=== PATIENT | male | born 1970 | race Two or more races ===

== ENCOUNTER 2020-12-04 20:06 | Emergency (ER) | payer BC ==
--- NOTE | 2020-12-04 20:38 | EDM.PDOC ---
ED HPI GENERAL MEDICAL PROBLEM - General Chief Complaint: Respiratory Problem Stated Complaint: COVID SYMPTOMS GETTING WORSE Time Seen by Provider: 12/04/20 20:21 Source of Information: Reports: Patient History Limitations: Reports: No Limitations - History of Present Illness INITIAL COMMENTS - FREE TEXT/NARRATIVE: Patient is a 50-year-old male who presents today for worsening Covid symptoms. Patient states that he has symptoms since last week but tested +3 days ago on Friday. States since that time has had increased tightness in his chest. The tightness made worse with ambulating. He also has some shortness of breath or nonproductive cough. The pain in his chest did not radiate anywhere. He does not take any medicines at home just vitamin D or other supplements. Denies any abdominal pain nausea vomiting or other symptoms. - Related Data Allergies Allergy/AdvReac Type Severity Reaction Status Date / Time No Known Allergies Allergy Verified 12/04/20 20:27 Past Medical History - Past Health History Medical/Surgical History: Denies Medical/Surgical History - Infectious Disease History Other Infectious Disease History: covid diagnosed 12/01/20 Social & Family History - Tobacco Use Tobacco Use Status *Q: Never Tobacco User - Recreational Drug Use Recreational Drug Use: No ED ROS GENERAL - Review of Systems Review Of Systems: See Below Constitutional: Reports: No Symptoms HEENT: Reports: No Symptoms Respiratory: Reports: Shortness of Breath Cardiovascular: Reports: Chest Pain Endocrine: Reports: No Symptoms GI/Abdominal: Reports: No Symptoms : Reports: No Symptoms Musculoskeletal: Reports: No Symptoms Skin: Reports: No Symptoms Neurological: Reports: No Symptoms Psychiatric: Reports: No Symptoms Hematologic/Lymphatic: Reports: No Symptoms Immunologic: Reports: No Symptoms ED EXAM, GENERAL - Physical Exam Exam: See Below Exam Limited By: No Limitations General Appearance: Alert, WD/WN, No Apparent Distress Head: Atraumatic, Normocephalic Respiratory/Chest: No Respiratory Distress, Lungs Clear, Normal Breath Sounds Cardiovascular: Normal Peripheral Pulses, Regular Rate, Rhythm GI/Abdominal: Normal Bowel Sounds, Soft, Non-Tender Back Exam: Normal Inspection Extremities: Normal Inspection, Normal Range of Motion Neurological: Alert, Oriented, Normal Cognition, Normal Gait Psychiatric: Normal Affect #1 Interpretation EKG Date: 12/04/20 Time: 20:54 Rhythm: Other (sinus tach) Rate (Beats/Min): 101 ST-T: Normal Course - Vital Signs Last Recorded V/S: Last Vital Signs Temp 98.4 F 12/04/20 20:27 Pulse 102 H 12/04/20 20:27 Resp 20 12/04/20 20:27 BP 125/72 12/04/20 20:27 Pulse Ox 93 L 12/04/20 20:27 - Orders/Labs/Meds Orders: Active Orders 24 hr Category Date Time Status EKG Documentation Completion [RC] STAT Care 12/04/20 20:34 Active Labs: Laboratory Tests 12/04/20 12/04/20 12/04/20 Range/Units 20:55 20:55 20:55 WBC 6.55 (4.0-11.0) K/uL RBC 5.48 (4.50-5.90) M/uL Hgb 16.6 (13.0-17.0) g/dL Hct 46.0 (38.0-50.0) % MCV 83.9 (80.0-98.0) fL MCH 30.3 (27.0-32.0) pg MCHC 36.1 (31.0-37.0) g/dL RDW Std Deviation 38.5 (28.0-62.0) fl RDW Coeff of Laney 13 (11.0-15.0) % Plt Count 175 (150-400) K/uL MPV 9.70 (7.40-12.00) fL Neut % (Auto) 74.3 (48.0-80.0) % Lymph % (Auto) 19.4 (16.0-40.0) % [place] % (Auto) 6.3 (0.0-15.0) % Eos % (Auto) 0.0 (0.0-7.0) % Baso % (Auto) 0.0 (0.0-1.5) % Neut # (Auto) 4.9 (1.4-5.7) K/uL Lymph # (Auto) 1.3 (0.6-2.4) K/uL [place] # (Auto) 0.4 (0.0-0.8) K/uL Eos # (Auto) 0.0 (0.0-0.7) K/uL Baso # (Auto) 0.0 (0.0-0.1) K/uL Nucleated RBC % 0.0 /100WBC Nucleated RBCs # 0 K/uL INR 1.11 APTT 26.2 (18.6-31.3) SEC D-Dimer, Quantitative 0.82 H (0.0-0.50) mg/L FEU Sodium 131 L (136-148) mmol/L Potassium 4.4 (3.5-5.1) mmol/L Chloride 94 L (98-107) mmol/L Carbon Dioxide 26.0 (21.0-32.0) mmol/L BUN 15 (7.0-18.0) mg/dL Creatinine 1.3 (0.8-1.3) mg/dL Est Cr Clr Drug Dosing TNP Estimated GFR (MDRD) 58.4 ml/min Glucose 115 H (74-106) mg/dL Lactic Acid (0.4-2.0) mmol/L Calcium 8.4 L (8.5-10.1) mg/dL Phosphorus 3.3 (2.6-4.7) mg/dL Magnesium 2.2 (1.8-2.4) mg/dL Total Bilirubin 0.7 (0.2-1.0) mg/dL AST 65 H (15-37) IU/L ALT 69 H (14-63) IU/L Alkaline Phosphatase 38 L (46-116) U/L Creatine Kinase 762 H (26-308) U/L Troponin I < 0.050 (0.000-0.056) ng/mL Total Protein 7.6 (6.4-8.2) g/dL Albumin 3.6 (3.4-5.0) g/dL Globulin 4.0 (2.6-4.0) g/dL Albumin/Globulin Ratio 0.9 (0.9-1.6) Lipase 609 H (73-393) U/L 12/04/20 Range/Units 20:55 WBC (4.0-11.0) K/uL RBC (4.50-5.90) M/uL Hgb (13.0-17.0) g/dL Hct (38.0-50.0) % MCV (80.0-98.0) fL MCH (27.0-32.0) pg MCHC (31.0-37.0) g/dL RDW Std Deviation (28.0-62.0) fl RDW Coeff of Laney (11.0-15.0) % Plt Count (150-400) K/uL MPV (7.40-12.00) fL Neut % (Auto) (48.0-80.0) % Lymph % (Auto) (16.0-40.0) % [place] % (Auto) (0.0-15.0) % Eos % (Auto) (0.0-7.0) % Baso % (Auto) (0.0-1.5) % Neut # (Auto) (1.4-5.7) K/uL Lymph # (Auto) (0.6-2.4) K/uL [place] # (Auto) (0.0-0.8) K/uL Eos # (Auto) (0.0-0.7) K/uL Baso # (Auto) (0.0-0.1) K/uL Nucleated RBC % /100WBC Nucleated RBCs # K/uL INR APTT (18.6-31.3) SEC D-Dimer, Quantitative (0.0-0.50) mg/L FEU Sodium (136-148) mmol/L Potassium (3.5-5.1) mmol/L Chloride (98-107) mmol/L Carbon Dioxide (21.0-32.0) mmol/L BUN (7.0-18.0) mg/dL Creatinine (0.8-1.3) mg/dL Est Cr Clr Drug Dosing Estimated GFR (MDRD) ml/min Glucose (74-106) mg/dL Lactic Acid 1.5 (0.4-2.0) mmol/L Calcium (8.5-10.1) mg/dL Phosphorus (2.6-4.7) mg/dL Magnesium (1.8-2.4) mg/dL Total Bilirubin (0.2-1.0) mg/dL AST (15-37) IU/L ALT (14-63) IU/L Alkaline Phosphatase (46-116) U/L Creatine Kinase (26-308) U/L Troponin I (0.000-0.056) ng/mL Total Protein (6.4-8.2) g/dL Albumin (3.4-5.0) g/dL Globulin (2.6-4.0) g/dL Albumin/Globulin Ratio (0.9-1.6) Lipase (73-393) U/L Meds: Medications Discontinued Medications Generic Name Dose Route Start Last Admin Trade Name Victor Hugo PRN Reason Stop Dose Admin Iopamidol 75 ml 12/04/20 22:38 12/04/20 22:54 Iopamidol 755 Mg/Ml 500 Ml Multipack Bottle IVPUSH 12/04/20 22:39 75 ml ONETIME STA Administration - Re-Assessments/Exams Free Text/Narrative Re-Assessment/Exam: 12/05/20 00:12 Patient is satting 94% while sleeping. Patient looks well. Patient CT does not show any clots. Patient to be discharged follow-up PMD. Departure - Departure Time of Disposition: 00:12 Disposition: Home, Self-Care 01 Condition: Good Clinical Impression: COVID-19 - Discharge Information *PRESCRIPTION DRUG MONITORING PROGRAM REVIEWED*: Not Applicable *COPY OF PRESCRIPTION DRUG MONITORING REPORT IN PATIENT NATE: Not Applicable Instructions: COVID-19 Frequently Asked Questions Referrals: PCP,None [Primary Care Provider] - Forms: ED Department Discharge Additional Instructions: The following information is given to patients seen in the emergency department who are being discharged to home. This information is to outline your options for follow-up care. We provide all patients seen in our emergency department with a follow-up referral. The need for follow-up, as well as the timing and circumstances, are variable depending upon the specifics of your emergency department visit. If you don't have a primary care physician on staff, we will provide you with a referral. We always advise you to contact your personal physician following an emergency department visit to inform them of the circumstance of the visit and for follow-up with them and/or the need for any referrals to a consulting specialist. The emergency department will also refer you to a specialist when appropriate. This referral assures that you have the opportunity for follow-up care with a specialist. All of these measure are taken in an effort to provide you with optimal care, which includes your follow-up. Under all circumstances we always encourage you to contact your private physician who remains a resource for coordinating your care. When calling for follow-up care, please make the office aware that this follow-up is from your recent emergency room visit. If for any reason you are refused follow-up, please contact the [facility] Emergency Department at and asked to speak to the emergency department charge nurse. Please follow up with your primary care physician. If you do not have a primary care physician, see below: [facility] [address] [place] [address] My [facility] [address] [place] [address] You were seen today for worsening Covid symptoms. Your oxygen levels in the mid 90s which is typical for people with Covid. We recommend you follow your primary care physician. Please continue to try [id number] medications. Your symptoms may become worse around a 7 or 8 which happens with Covid. If your symptoms become to worse please return to the ED otherwise continue to follow your primary care physician. Sepsis Event Note (ED) - Evaluation Sepsis Screening Result: No Definite Risk - Focused Exam Vital Signs: Vital Signs Temp Pulse Resp BP Pulse Ox 12/04/20 20:27 98.4 F 102 H 20 125/72 93 L - My Orders Last 24 Hours: My Active Orders 12/04/20 20:34 EKG Documentation Completion [RC] STAT - Assessment/Plan Last 24 Hours: My Active Orders 12/04/20 20:34 EKG Documentation Completion [RC] STAT Plan: Patient is a 50-year-old male presents today for worsening Covid symptoms. Patient has a possible Covid a few days ago. He is accompanied today complaint of worsening chest pain and shortness of breath made worse ambulation. Patient is an 87% on room air at rest. Will obtain labs x-ray EKG and CT scan and reassess patient.
--- NOTE | 2020-12-04 21:08 | CR ---
INDICATION: COVID-19 chest tightness TECHNIQUE: Chest radiograph 1 view on 2 films COMPARISON: None FINDINGS: The sensitivity and specificity of the exam are moderately limited by the patient`s body habitus. Mediastinum: The mediastinum is normal in appearance. The heart silhouette is normal in size and morphology. Lung: Patchy subpleural ground-glass infiltrates and consolidation present both lungs, consistent with COVID-19 infection. No sign of pleural effusion seen. No pneumothorax is identified. Bone and Soft tissue: Unremarkable for age. IMPRESSION: 1. Patchy subpleural ground-glass infiltrates and consolidation present both lungs, consistent with COVID-19 infection. Dictated by Amador rBaswell MD @ 12/04/2020 9:06:31 PM Dictated by: Amador Braswell MD @ 12/04/2020 21:06:39 (Electronically Signed)
[2020-12-04 21:43] LABS: BLOOD UREA NITROGEN,BUN 15 mg/dL (7.0-18.0); CHLORIDE,CL 94 mmol/L (98-107); GLUCOSE RANDOM 115 mg/dL (74-106); LIPASE 609 U/L (73-393); POTASSIUM,K 4.4 mmol/L (3.5-5.1); SODIUM,NA 131 mmol/L (136-148)
[2020-12-04] MEDS ORDERED: Iopamidol 755 MG/ML 500 ML Multipack Bottle IVPUSH STA (22:38)
--- NOTE | 2020-12-04 23:51 | CT ---
INDICATION: Chest tightness, positive D-dimer and COVID infection. TECHNIQUE: CT chest PE was acquired with 75 cc Isovue 370 intravenous contrast. COMPARISON: None. FINDINGS: Heart and vasculature: Contrast opacification of the pulmonary arterial tree is adequate. No sign of pulmonary embolism. Atherosclerosis with normal diameter of the thoracic aorta. No pericardial effusion. Lungs and pleural: No pleural effusion or pneumothorax. Extensive bilateral peripheral ground-glass opacities throughout the lungs. Lymph nodes/mediastinum: Mediastinal and left hilar calcified lymph nodes. Right hilar lymph nodes measure up to 2 centimeters. Right paratracheal lymph nodes measure up to 12 millimeters. Chest wall: No masses. Upper abdomen: Diffusely decreased density of the liver. Punctate calcifications within the spleen consistent with old granulomatous disease. Bones: Unremarkable for age. IMPRESSION: 1. No evidence of pulmonary embolus. 2. Extensive bilateral ground-glass opacities consistent with COVID-19 pneumonia. 3. Hepatic steatosis. Please note that all CT scans at this facility use dose modulation, iterative reconstruction, and/or weight-based dosing when appropriate to reduce radiation dose to as low as reasonably achievable. Dictated by Manish Francois MD @ 12/04/2020 11:51:[address] Manish Francois @ Dec 04 2020 11:51PM
== END 2020-12-05 00:20 | disposition home or self-care (01) ==
LOC: MW.ED 20:06
DX: U07.1 COVID-19 (principal); R00.0 Tachycardia, unspecified
CPT/HCPCS: 36415; 71045; 71275; 80053; 82550; 83605; 83690; 83735; 84100; 84484; 85025; 85379; 85610; 85730; 93005; 99285; Q9967

== ENCOUNTER 2020-12-05 17:59 | Inpatient (IN) | payer BC ==
--- NOTE | 2020-12-05 18:36 | EDM.PDOC ---
ED HPI GENERAL MEDICAL PROBLEM - General Chief Complaint: Respiratory Problem Stated Complaint: COVID SYMPTOMS Time Seen by Provider: 12/05/20 18:27 - History of Present Illness INITIAL COMMENTS - FREE TEXT/NARRATIVE: History of present illness: [] This patient complains of weakness and shortness of breath. He has a cough. He has had about 8 days of symptoms for COVID-19 and tested +4 days ago. He was seen here yesterday and at that time he had elevation of lipase and CPK. His oxygen saturation was adequate. He was sent home. He continued to deteriorate with weakness and presents now with an oxygen saturation in the mid 80s on room air. He does not have oxygen at home has not received monoclonal antibodies and is not received remdesivir. Review of systems: As per history of present illness and below otherwise all systems reviewed and negative. Past medical history: As per history of present illness and as reviewed below otherwise noncontributory. Surgical history: As per history of present illness and as reviewed below otherwise noncontributory. Social history: No reported history of drug or alcohol abuse. Family history: As per history of present illness and as reviewed below otherwise noncont ributory. Physical exam: Constitutional - well developed, well-nourished and in no acute distress HEENT - normocephalic, no evidence of trauma - external nose and mouth normal - no mass in neck and no JVD - mucosae moist EYES - full EOM, PERRL, no icterus - no evidence of inflammation, injection, or drainage Respiratory - no respiratory distress, equal bilateral expansion, lungs diminished breath sounds throughout. Oxygen saturation in the mid 80s. Corrected to 93 on 4 L of nasal cannula. Cardiovascular - Regular Rhythm with S1 and S2 appreciated and no murmur, gallop or rub. GI - abdomen soft without distension or organomegaly - normal bowel sounds - no guard or rebound Musculoskeletal no gross deformity of long bones or joints - no tenderness, swelling or edema Neurologic - Alert and oriented times four - CN II-XII grossly intact - motor sensory and coordination symmetrically normal Psychiatric - appropriate mood and affect with normal thought content Hematologic - No petechiae or purpura - mucosa appropriate color and sclera not pale - normal nail bed color and refill Integument -skin pale-no rash or evidence of trauma - normal turgor Diagnostics: [] Therapeutics: [] Impression: [] Plan: [] Definitive disposition and diagnosis as appropriate pending reevaluation and review of above. lower extremities bilaterally Pain Score (Numeric/FACES): 4 - Related Data Allergies Allergy/AdvReac Type Severity Reaction Status Date / Time No Known Allergies Allergy Verified 12/05/20 18:26 Home Meds: Home Meds . [No Known Home Meds] 12/05/20 [History] Past Medical History - Past Health History Medical/Surgical History: Denies Medical/Surgical History HEENT History: Reports: None Cardiovascular History: Reports: None Respiratory History: Reports: None Gastrointestinal History: Reports: None Genitourinary History: Reports: None Musculoskeletal History: Reports: None Neurological History: Reports: None Psychiatric History: Reports: None Endocrine/Metabolic History: Reports: None Hematologic History: Reports: None Immunologic History: Reports: None Oncologic (Cancer) History: Reports: None Dermatologic History: Reports: None - Infectious Disease History Infectious Disease History: Reports: Novel Coronavirus Other Infectious Disease History: covid diagnosed 12/01/20 - Past Surgical History Head Surgeries/Procedures: Reports: None Social & Family History - Family History Family Medical History: No Pertinent Family History - Tobacco Use Tobacco Use Status *Q: Never Tobacco User Second Hand Smoke Exposure: No - Caffeine Use Caffeine Use: Reports: None - Recreational Drug Use Recreational Drug Use: No ED ROS GENERAL - Review of Systems Review Of Systems: Comprehensive ROS is negative, except as noted in HPI. ED EXAM, GENERAL - Physical Exam Exam: See Below Free Text/Narrative:: My physical exam is in the HPI Course - Vital Signs Text/Narrative:: [address] Elena and patient admitted Last Recorded V/S: Last Vital Signs Temp 36.4 C 12/05/20 18:22 Pulse 106 H 12/05/20 18:22 Resp 18 12/05/20 18:22 BP 102/61 12/05/20 18:22 Pulse Ox 85 L 12/05/20 18:22 - Orders/Labs/Meds Orders: Active Orders 24 hr Category Date Time Status Admission Status [Patient Status] [ADT] Stat ADT 12/05/20 18:51 Ordered EKG Documentation Completion [RC] AM Care 12/05/20 18:38 Active Chest 1V Frontal [CR] Stat Exams 12/05/20 18:39 Stop Req CBC WITH AUTO DIFF [HEME] Stat Lab 12/05/20 18:38 Ordered COMPREHENSIVE METABOLIC PN,CMP [CHEM] Stat Lab 12/05/20 18:38 Ordered CREATINE KINASE,CK [CHEM] Stat Lab 12/05/20 18:38 Ordered LIPASE [CHEM] Stat Lab 12/05/20 18:38 Ordered TROPONIN I [CHEM] Stat Lab 12/05/20 18:38 Ordered Sodium Chloride 0.9% [Normal Saline] 1,000 ml Med 12/05/20 18:39 Active IV .Bolus Sodium Chloride 0.9% [Saline Flush] Med 12/05/20 18:38 Active 10 ml FLUSH ASDIRECTED PRN Sodium Chloride 0.9% [Saline Flush] Med 12/05/20 18:38 Active 2.5 ml FLUSH ASDIRECTED PRN Saline Lock Insert [OM.PC] Stat Oth 12/05/20 18:38 Ordered Medication Orders Sodium Chloride (Normal Saline) 1,000 mls @ 500 mls/hr IV .Bolus ONE Stop: 12/05/20 20:38 Sodium Chloride (Sodium Chloride 0.9% 10 Ml Syringe) 10 ml FLUSH ASDIRECTED PRN PRN Reason: Keep Vein Open Sodium Chloride (Sodium Chloride 0.9% 2.5 Ml Syringe) 2.5 ml FLUSH ASDIRECTED PRN PRN Reason: Keep Vein Open Meds: Medications Generic Name Dose Route Start Last Admin Trade Name Freq PRN Reason Stop Dose Admin Sodium Chloride 1,000 mls @ 500 mls/hr 12/05/20 18:39 Normal Saline IV 12/05/20 20:38 .Bolus ONE Sodium Chloride 10 ml 12/05/20 18:38 Sodium Chloride 0.9% 10 Ml Syringe FLUSH ASDIRECTED PRN Keep Vein Open Sodium Chloride 2.5 ml 12/05/20 18:38 Sodium Chloride 0.9% 2.5 Ml Syringe FLUSH ASDIRECTED PRN Keep Vein Open Departure - Departure Time of Disposition: 18:53 Disposition: Admitted As Inpatient 66 Condition: Fair Clinical Impression: Pneumonia due to COVID-19 virus, Dehydration - Discharge Information Referrals: PCP,None [Primary Care Provider] - Forms: ED Department Discharge Sepsis Event Note (ED) - Evaluation Sepsis Screening Result: No Definite Risk - Focused Exam Vital Signs: Vital Signs Temp Pulse Resp BP Pulse Ox 12/05/20 18:22 36.4 C 106 H 18 102/61 85 L - My Orders Last 24 Hours: My Active Orders 12/05/20 18:38 EKG Documentation Completion [RC] AM CBC WITH AUTO DIFF [HEME] Stat COMPREHENSIVE METABOLIC PN,CMP [CHEM] Stat CREATINE KINASE,CK [CHEM] Stat LIPASE [CHEM] Stat TROPONIN I [CHEM] Stat Sodium Chloride 0.9% [Saline Flush] 10 ml FLUSH ASDIRECTED PRN Sodium Chloride 0.9% [Saline Flush] 2.5 ml FLUSH ASDIRECTED PRN Saline Lock Insert [OM.PC] Stat 12/05/20 18:39 Chest 1V Frontal [CR] Stat Sodium Chloride 0.9% [Normal Saline] 1,000 ml IV .Bolus 12/05/20 18:51 Admission Status [Patient Status] [ADT] Stat - Assessment/Plan Last 24 Hours: My Active Orders 12/05/20 18:38 EKG Documentation Completion [RC] AM CBC WITH AUTO DIFF [HEME] Stat COMPREHENSIVE METABOLIC PN,CMP [CHEM] Stat CREATINE KINASE,CK [CHEM] Stat LIPASE [CHEM] Stat TROPONIN I [CHEM] Stat Sodium Chloride 0.9% [Saline Flush] 10 ml FLUSH ASDIRECTED PRN Sodium Chloride 0.9% [Saline Flush] 2.5 ml FLUSH ASDIRECTED PRN Saline Lock Insert [OM.PC] Stat 12/05/20 18:39 Chest 1V Frontal [CR] Stat Sodium Chloride 0.9% [Normal Saline] 1,000 ml IV .Bolus 12/05/20 18:51 Admission Status [Patient Status] [ADT] Stat
[2020-12-05] MEDS ORDERED: Sodium Chloride 0.9% 10 ML Syringe FLUSH PRN (18:38)
[2020-12-05] MEDS ORDERED: Sodium Chloride 0.9% 2.5 ML Syringe FLUSH PRN (18:38)
[2020-12-05] MEDS ORDERED: Sodium Chloride 0.9% 1,000 ML IV ONE (18:39)
[2020-12-05 19:49] LABS: BLOOD UREA NITROGEN,BUN 16 mg/dL (7.0-18.0); CARBON DIOXIDE,CO2 25.2 mmol/L (21.0-32.0); CHLORIDE,CL 94 mmol/L (98-107); GLUCOSE RANDOM 112 mg/dL (74-106); LIPASE 512 U/L (73-393); POTASSIUM,K 4.2 mmol/L (3.5-5.1); SODIUM,NA 129 mmol/L (136-148)
[2020-12-05] MEDS ORDERED: REMDESIVIR 200 MG in Sodium Chloride 0.9% 250 ML IV ONE (23:35)
[2020-12-05] MEDS ORDERED: Acetaminophen 325 MG Tab PO PRN (23:36)
--- NOTE | 2020-12-05 23:51 | PCM.HP.2 ---
H&P History of Present Illness - General Date of Service: 12/05/20 Admit Problem/Dx: Admission Diagnosis/Problem Admission Diagnosis/Problem Pneumonia - History of Present Illness Initial Comments - Free Text/Narative: 50 yo male who presents to the ED with complaint of shortness of breath, cough, chills, headache and diarrhea. Patient denies any abdominal pain. He was diagnosed on Friday and first started to have symptoms 8 days ago. He denies any abdominal pain. He was seen in the ED yesterday and had a CT scan of his chest which was negative for PE but reported covid pneumonia. lower extremities bilaterally Pain Score (Numeric/FACES): 4 - Related Data Allergies/Adverse Reactions: Allergies Allergy/AdvReac Type Severity Reaction Status Date / Time No Known Allergies Allergy Verified 12/06/20 02:42 Home Medications: Home Meds Lisinopril/Hydrochlorothiazide [Lisinopril-Hctz 20-12.5 mg Tab] 1 tab PO DAILY 12/06/20 [History] dilTIAZem HCL [Diltiazem 24Hr ER (Cd)] 360 mg PO DAILY 12/06/20 [History] Past Medical History - Past Health History Medical/Surgical History: Denies Medical/Surgical History HEENT History: Reports: None Cardiovascular History: Reports: None Respiratory History: Reports: None Gastrointestinal History: Reports: None Genitourinary History: Reports: None Musculoskeletal History: Reports: None Neurological History: Reports: None Psychiatric History: Reports: None Endocrine/Metabolic History: Reports: None Hematologic History: Reports: None Immunologic History: Reports: None Oncologic (Cancer) History: Reports: None Dermatologic History: Reports: None - Infectious Disease History Infectious Disease History: Reports: Chicken Pox, Novel Coronavirus Other Infectious Disease History: covid diagnosed 12/01/20 - Past Surgical History Head Surgeries/Procedures: Reports: None Social & Family History - Family History Family Medical History: No Pertinent Family History - Tobacco Use Tobacco Use Status *Q: Never Tobacco User Second Hand Smoke Exposure: No - Caffeine Use Caffeine Use: Reports: Coffee, Soda Caffeine Use Comment: 8 daily - Alcohol Use Number of Drinks Per Day: 1 - Recreational Drug Use Recreational Drug Use: No H&P Review of Systems - Review of Systems: Review Of Systems: Comprehensive ROS is negative, except as noted in HPI. Exam - Exam Exam: See Below - Vital Signs Vital Signs: Last Vital Signs Temp 36.1 C 12/05/20 23:15 Pulse 88 12/05/20 23:15 Resp 20 12/05/20 23:15 BP 139/79 12/05/20 23:15 Pulse Ox 93 L 12/05/20 23:15 Weight: 111.629 kg - Exam General: Alert, Oriented HEENT: Mucosa Moist & [place] Neck: Supple Lungs: Clear to Auscultation, Normal Respiratory Effort Cardiovascular: Regular Rate, Regular Rhythm GI/Abdominal Exam: Normal Bowel Sounds, Soft, Non-Tender Extremities: Non-Tender, No Pedal Edema Skin: Warm, Dry, Intact Neurological: No: Focal Deficit - Patient Data Lab Results Last 24 hrs: Laboratory Results - last 24 hr 12/05/20 12/05/20 Range/Units 19:00 19:00 WBC 8.78 (4.0-11.0) K/uL RBC 5.29 (4.50-5.90) M/uL Hgb 15.7 (13.0-17.0) g/dL Hct 43.9 (38.0-50.0) % MCV 83.0 (80.0-98.0) fL MCH 29.7 (27.0-32.0) pg MCHC 35.8 (31.0-37.0) g/dL RDW Std Deviation 38.0 (28.0-62.0) fl RDW Coeff of [place] 13 (11.0-15.0) % Plt Count 237 (150-400) K/uL MPV 9.80 (7.40-12.00) fL Neut % (Auto) 79.5 (48.0-80.0) % Lymph % (Auto) 15.0 L (16.0-40.0) % [place] % (Auto) 5.4 (0.0-15.0) % Eos % (Auto) 0.0 (0.0-7.0) % Baso % (Auto) 0.1 (0.0-1.5) % Neut # (Auto) 7.0 H (1.4-5.7) K/uL Lymph # (Auto) 1.3 (0.6-2.4) K/uL [place] # (Auto) 0.5 (0.0-0.8) K/uL Eos # (Auto) 0.0 (0.0-0.7) K/uL Baso # (Auto) 0.0 (0.0-0.1) K/uL Nucleated RBC % 0.0 /100WBC Nucleated RBCs # 0 K/uL Sodium 129 L (136-148) mmol/L Potassium 4.2 (3.5-5.1) mmol/L Chloride 94 L (98-107) mmol/L Carbon Dioxide 25.2 (21.0-32.0) mmol/L BUN 16 (7.0-18.0) mg/dL Creatinine 1.3 (0.8-1.3) mg/dL Est Cr Clr Drug Dosing 72.40 mL/min Estimated GFR (MDRD) 58.4 ml/min Glucose 112 H (74-106) mg/dL Calcium 8.3 L (8.5-10.1) mg/dL Total Bilirubin 0.8 (0.2-1.0) mg/dL AST 61 H (15-37) IU/L ALT 66 H (14-63) IU/L Alkaline Phosphatase 43 L (46-116) U/L Creatine Kinase 667 H (26-308) U/L Troponin I < 0.050 (0.000-0.056) ng/mL Total Protein 7.1 (6.4-8.2) g/dL Albumin 3.2 L (3.4-5.0) g/dL Globulin 3.9 (2.6-4.0) g/dL Albumin/Globulin Ratio 0.8 L (0.9-1.6) Lipase 512 H (73-393) U/L Result Diagrams: 12/06/20 05:29 12/06/20 05:29 Sepsis Event Note - Evaluation Sepsis Screening Result: No Definite Risk - Focused Exam Vital Signs: Vital Signs Temp Pulse Resp BP BP Pulse Ox 12/05/20 23:15 36.1 C 88 20 139/79 93 L 12/05/20 18:22 36.4 C 106 H 18 102/61 85 L Problem List Initiated/Reviewed/Updated: Yes Orders Last 24hrs: Active Orders 24 hr Category Date Time Status Admission Status [Patient Status] [ADT] Stat ADT 12/05/20 18:51 Active EKG Documentation Completion [RC] AM Care 12/05/20 18:38 Active Oxygen Therapy [RC] PRN Care 12/05/20 23:37 Ordered Telemetry Monitoring [Cardiac Monitoring] [RC] . Care 12/05/20 22:40 Active DIRECTED Up ad Renetta [RC] ASDIRECTED Care 12/05/20 23:36 Ordered VTE/DVT Education [RC] PER UNIT ROUTINE Care 12/05/20 23:37 Ordered Vital Signs [RC] Q4H Care 12/05/20 23:37 Ordered Regular Diet [DIET] Diet 12/05/20 Breakfast Ordered CXR [Chest 1V Frontal] [CR] AM Exams 12/06/20 05:11 Ordered CBC WITH AUTO DIFF [HEME] AM Lab 12/06/20 05:11 Ordered COMPREHENSIVE METABOLIC PN,CMP [CHEM] AM Lab 12/06/20 05:11 Ordered COMPREHENSIVE METABOLIC PN,CMP [CHEM] AM Lab 12/07/20 05:11 Ordered COMPREHENSIVE METABOLIC PN,CMP [CHEM] AM Lab 12/08/20 05:11 Ordered COMPREHENSIVE METABOLIC PN,CMP [CHEM] AM Lab 12/09/20 05:11 Ordered COMPREHENSIVE METABOLIC PN,CMP [CHEM] AM Lab 12/10/20 05:11 Ordered CPK [CREATINE KINASE,CK] [CHEM] AM Lab 12/06/20 05:11 Ordered LIPASE [CHEM] AM Lab 12/06/20 05:11 Ordered MAGNESIUM [CHEM] AM Lab 12/06/20 05:11 Ordered Acetaminophen [TylenoL] Med 12/05/20 23:36 Ordered 650 mg PO Q4H PRN Enoxaparin [Lovenox] Med 12/05/20 23:45 Ordered 40 mg SUBCUT Q24H Remdesivir 100 mg Med 12/06/20 23:45 Ordered Sodium Chloride 0.9% [Normal Saline] 100 ml IV Q24H Sodium Chloride 0.9% [Saline Flush] Med 12/05/20 18:38 Active 10 ml FLUSH ASDIRECTED PRN Sodium Chloride 0.9% [Saline Flush] Med 12/05/20 18:38 Active 2.5 ml FLUSH ASDIRECTED PRN dexAMETHasone Med 12/05/20 23:45 Ordered 6 mg PO Q24H Saline Lock Insert [OM.PC] Stat Oth 12/05/20 18:38 Ordered Resuscitation Status Routine Resus Stat 12/05/20 23:36 Ordered Medication Orders Acetaminophen (Acetaminophen 325 Mg Tab) 650 mg PO Q4H PRN PRN Reason: Pain (Mild 1-3)/fever Dexamethasone (Dexamethasone 4 Mg Tab) 6 mg PO Q24H RADHA Enoxaparin Sodium (Enoxaparin 40 Mg/0.4 Ml Syringe) 40 mg SUBCUT Q24H RADHA Remdesivir 100 mg/ Sodium (Chloride) 100 mls @ 100 mls/hr IV Q24H RADHA Stop: 12/09/20 21:59 Sodium Chloride (Sodium Chloride 0.9% 10 Ml Syringe) 10 ml FLUSH ASDIRECTED PRN PRN Reason: Keep Vein Open Last Admin: 12/05/20 19:08 Dose: 10 ml Documented by: BOLA Sodium Chloride (Sodium Chloride 0.9% 2.5 Ml Syringe) 2.5 ml FLUSH ASDIRECTED PRN PRN Reason: Keep Vein Open Assessment/Plan Comment:: 50 yo male admitted with acute hypoxic respiratory failure from COVID pneumonia. We will treat with Remdesivir and dexamethasone. Will wean supplemental oxygen as tolerated. PAtient received IV fluids in ED. Will continue to monitor need for fluid replacement.
[2020-12-06] MEDS: Enoxaparin 40 MG/0.4 ML Syringe SUBCUT SCH ×2 (00:20→23:02)
[2020-12-06] MEDS: Dexamethasone 4 MG Tab PO SCH ×2 (00:20→23:00)
[2020-12-06 06:12] LABS: BLOOD UREA NITROGEN,BUN 16 mg/dL (7.0-18.0); CARBON DIOXIDE,CO2 24.9 mmol/L (21.0-32.0); CHLORIDE,CL 98 mmol/L (98-107); GLUCOSE RANDOM 136 mg/dL (74-106); LIPASE 497 U/L (73-393); POTASSIUM,K 4.2 mmol/L (3.5-5.1); SODIUM,NA 133 mmol/L (136-148)
--- NOTE | 2020-12-06 07:19 | CR ---
Indication: COVID-19 pneumonitis Technique: Chest 1 view Comparison: 12/04/2020 Findings/Impression: Cardiovascular and mediastinum: Heart size and vasculature are normal in caliber and appearance. Lungs and pleural space: Ill-defined bilateral infiltrates consistent with COVID pneumonitis may have slightly improved. No effusions and no pneumothorax. Bones and soft tissues: No acute findings. Dictated by Ajit Roach MD @ 12/06/2020 7:19:[address] Ajit Roach @ Dec 06 2020 7:19AM
--- NOTE | 2020-12-06 11:19 | PCM.PN ---
- General Info Date of Service: 12/06/20 Admission Dx/Problem (Free Text): Admission Diagnosis/Problem Admission Diagnosis/Problem Pneumonia Subjective Update: 50-year-old male admitted for Covid pneumonia currently on 4 L nasal cannula. He states he feels better this morning with his breathing and cough. Denies chest pain or tightness. Denies abdominal pain, nausea or vomiting. He does not appear to be in respiratory distress and is resting comfortably. He denies muscle pain or hematuria. According to his med rec he was on diltiazem and lisinopril hydrochlorothiazide. Patient states that he does have a history of hypertension but has not refilled his medications in a while since his blood pressure has been" normal" - Review of Systems General: Denies: Fever, Chills HEENT: Denies: Eye Pain, Sore Throat Pulmonary: Denies: Shortness of Breath, Sputum, Hemoptysis, Wheezing Cardiovascular: Reports: No Symptoms Gastrointestinal: Reports: Decreased Appetite. Denies: Abdominal Pain, Diarrhea, Nausea, Vomiting Genitourinary: Reports: No Symptoms Musculoskeletal: Reports: No Symptoms Skin: Reports: No Symptoms Neurological: Reports: No Symptoms - Patient Data Vitals - Most Recent: Last Vital Signs Temp 95.7 F L 12/06/20 08:00 Pulse 79 12/06/20 08:00 Resp 18 12/06/20 08:00 BP 120/74 12/06/20 08:00 Pulse Ox 91 L 12/06/20 08:00 Weight - Most Recent: 246 lb 1.6 oz I&O - Last 24 Hours: Intake & Output 12/05/20 12/06/20 12/06/20 22:59 06:59 14:59 Intake Total 550 Output Total 400 Balance 150 Lab Results Last 24 Hours: Laboratory Results - last 24 hr 12/05/20 12/05/20 12/06/20 Range/Units 19:00 19:00 05:29 WBC 8.78 8.36 (4.0-11.0) K/uL RBC 5.29 5.19 (4.50-5.90) M/uL Hgb 15.7 15.5 (13.0-17.0) g/dL Hct 43.9 43.6 (38.0-50.0) % MCV 83.0 84.0 (80.0-98.0) fL MCH 29.7 29.9 (27.0-32.0) pg MCHC 35.8 35.6 (31.0-37.0) g/dL RDW Std Deviation 38.0 38.9 (28.0-62.0) fl RDW Coeff of [place] 13 13 (11.0-15.0) % Plt Count 237 230 (150-400) K/uL MPV 9.80 9.60 (7.40-12.00) fL Neut % (Auto) 79.5 85.3 H (48.0-80.0) % Lymph % (Auto) 15.0 L 9.9 L (16.0-40.0) % [place] % (Auto) 5.4 4.7 (0.0-15.0) % Eos % (Auto) 0.0 0.0 (0.0-7.0) % Baso % (Auto) 0.1 0.1 (0.0-1.5) % Neut # (Auto) 7.0 H 7.1 H (1.4-5.7) K/uL Lymph # (Auto) 1.3 0.8 (0.6-2.4) K/uL [place] # (Auto) 0.5 0.4 (0.0-0.8) K/uL Eos # (Auto) 0.0 0.0 (0.0-0.7) K/uL Baso # (Auto) 0.0 0.0 (0.0-0.1) K/uL Nucleated RBC % 0.0 0.0 /100WBC Nucleated RBCs # 0 0 K/uL Sodium 129 L (136-148) mmol/L Potassium 4.2 (3.5-5.1) mmol/L Chloride 94 L (98-107) mmol/L Carbon Dioxide 25.2 (21.0-32.0) mmol/L BUN 16 (7.0-18.0) mg/dL Creatinine 1.3 (0.8-1.3) mg/dL Est Cr Clr Drug Dosing 72.40 mL/min Estimated GFR (MDRD) 58.4 ml/min Glucose 112 H (74-106) mg/dL Calcium 8.3 L (8.5-10.1) mg/dL Magnesium (1.8-2.4) mg/dL Total Bilirubin 0.8 (0.2-1.0) mg/dL AST 61 H (15-37) IU/L ALT 66 H (14-63) IU/L Alkaline Phosphatase 43 L (46-116) U/L Creatine Kinase 667 H (26-308) U/L Troponin I < 0.050 (0.000-0.056) ng/mL Total Protein 7.1 (6.4-8.2) g/dL Albumin 3.2 L (3.4-5.0) g/dL Globulin 3.9 (2.6-4.0) g/dL Albumin/Globulin Ratio 0.8 L (0.9-1.6) Lipase 512 H (73-393) U/L 12/06/20 Range/Units 05:29 WBC (4.0-11.0) K/uL RBC (4.50-5.90) M/uL Hgb (13.0-17.0) g/dL Hct (38.0-50.0) % MCV (80.0-98.0) fL MCH (27.0-32.0) pg MCHC (31.0-37.0) g/dL RDW Std Deviation (28.0-62.0) fl RDW Coeff of [place] (11.0-15.0) % Plt Count (150-400) K/uL MPV (7.40-12.00) fL Neut % (Auto) (48.0-80.0) % Lymph % (Auto) (16.0-40.0) % [place] % (Auto) (0.0-15.0) % Eos % (Auto) (0.0-7.0) % Baso % (Auto) (0.0-1.5) % Neut # (Auto) (1.4-5.7) K/uL Lymph # (Auto) (0.6-2.4) K/uL [place] # (Auto) (0.0-0.8) K/uL Eos # (Auto) (0.0-0.7) K/uL Baso # (Auto) (0.0-0.1) K/uL Nucleated RBC % /100WBC Nucleated RBCs # K/uL Sodium 133 L (136-148) mmol/L Potassium 4.2 (3.5-5.1) mmol/L Chloride 98 (98-107) mmol/L Carbon Dioxide 24.9 (21.0-32.0) mmol/L BUN 16 (7.0-18.0) mg/dL Creatinine 1.0 (0.8-1.3) mg/dL Est Cr Clr Drug Dosing 94.13 mL/min Estimated GFR (MDRD) > 60.0 ml/min Glucose 136 H (74-106) mg/dL Calcium 8.1 L (8.5-10.1) mg/dL Magnesium 2.5 H (1.8-2.4) mg/dL Total Bilirubin 0.6 (0.2-1.0) mg/dL AST 56 H (15-37) IU/L ALT 54 (14-63) IU/L Alkaline Phosphatase 41 L (46-116) U/L Creatine Kinase 485 H (26-308) U/L Troponin I (0.000-0.056) ng/mL Total Protein 6.7 (6.4-8.2) g/dL Albumin 2.9 L (3.4-5.0) g/dL Globulin 3.8 (2.6-4.0) g/dL Albumin/Globulin Ratio 0.8 L (0.9-1.6) Lipase 497 H (73-393) U/L Med Orders - Current: Current Medications Acetaminophen (Acetaminophen 325 Mg Tab) 650 mg PO Q4H PRN PRN Reason: Pain (Mild 1-3)/fever Dexamethasone (Dexamethasone 4 Mg Tab) 6 mg PO Q24H [facility] Last Admin: 12/06/20 00:20 Dose: 6 mg Documented by: Enoxaparin Sodium (Enoxaparin 40 Mg/0.4 Ml Syringe) 40 mg SUBCUT Q24H [facility] Last Admin: 12/06/20 00:20 Dose: 40 mg Documented by: Remdesivir 100 mg/ Sodium (Chloride) 100 mls @ 100 mls/hr IV Q24H [facility] Stop: 12/09/20 21:59 Sodium Chloride (Sodium Chloride 0.9% 10 Ml Syringe) 10 ml FLUSH ASDIRECTED PRN PRN Reason: Keep Vein Open Last Admin: 12/05/20 19:08 Dose: 10 ml Documented by: Sodium Chloride (Sodium Chloride 0.9% 2.5 Ml Syringe) 2.5 ml FLUSH ASDIRECTED PRN PRN Reason: Keep Vein Open Discontinued Medications Sodium Chloride (Normal Saline) 1,000 mls @ 500 mls/hr IV .Bolus ONE Stop: 12/05/20 20:38 Last Admin: 12/05/20 19:08 Dose: 500 mls/hr Documented by: Remdesivir 200 mg/ Sodium (Chloride) 250 mls @ 250 mls/hr IV ONETIME ONE Stop: 12/05/20 23:36 Last Admin: 12/06/20 00:20 Dose: 250 mls/hr Documented by: - Exam Quality Assessment: Supplemental Oxygen General: Alert, Oriented, Cooperative Neck: Supple Lungs: Decreased Breath Sounds Cardiovascular: Regular Rate, Regular Rhythm GI/Abdominal Exam: Soft, Non-Tender Extremities: No Pedal Edema. No: Gonzalo's Sign, Leg Pain Skin: Warm, Dry - Patient Data Lab Results Last 24 hrs: Laboratory Results - last 24 hr 12/05/20 12/05/20 12/06/20 Range/Units 19:00 19:00 05:29 WBC 8.78 8.36 (4.0-11.0) K/uL RBC 5.29 5.19 (4.50-5.90) M/uL Hgb 15.7 15.5 (13.0-17.0) g/dL Hct 43.9 43.6 (38.0-50.0) % MCV 83.0 84.0 (80.0-98.0) fL MCH 29.7 29.9 (27.0-32.0) pg MCHC 35.8 35.6 (31.0-37.0) g/dL RDW Std Deviation 38.0 38.9 (28.0-62.0) fl RDW Coeff of [place] 13 13 (11.0-15.0) % Plt Count 237 230 (150-400) K/uL MPV 9.80 9.60 (7.40-12.00) fL Neut % (Auto) 79.5 85.3 H (48.0-80.0) % Lymph % (Auto) 15.0 L 9.9 L (16.0-40.0) % [place] % (Auto) 5.4 4.7 (0.0-15.0) % Eos % (Auto) 0.0 0.0 (0.0-7.0) % Baso % (Auto) 0.1 0.1 (0.0-1.5) % Neut # (Auto) 7.0 H 7.1 H (1.4-5.7) K/uL Lymph # (Auto) 1.3 0.8 (0.6-2.4) K/uL [place] # (Auto) 0.5 0.4 (0.0-0.8) K/uL Eos # (Auto) 0.0 0.0 (0.0-0.7) K/uL Baso # (Auto) 0.0 0.0 (0.0-0.1) K/uL Nucleated RBC % 0.0 0.0 /100WBC Nucleated RBCs # 0 0 K/uL Sodium 129 L (136-148) mmol/L Potassium 4.2 (3.5-5.1) mmol/L Chloride 94 L (98-107) mmol/L Carbon Dioxide 25.2 (21.0-32.0) mmol/L BUN 16 (7.0-18.0) mg/dL Creatinine 1.3 (0.8-1.3) mg/dL Est Cr Clr Drug Dosing 72.40 mL/min Estimated GFR (MDRD) 58.4 ml/min Glucose 112 H (74-106) mg/dL Calcium 8.3 L (8.5-10.1) mg/dL Magnesium (1.8-2.4) mg/dL Total Bilirubin 0.8 (0.2-1.0) mg/dL AST 61 H (15-37) IU/L ALT 66 H (14-63) IU/L Alkaline Phosphatase 43 L (46-116) U/L Creatine Kinase 667 H (26-308) U/L Troponin I < 0.050 (0.000-0.056) ng/mL Total Protein 7.1 (6.4-8.2) g/dL Albumin 3.2 L (3.4-5.0) g/dL Globulin 3.9 (2.6-4.0) g/dL Albumin/Globulin Ratio 0.8 L (0.9-1.6) Lipase 512 H (73-393) U/L 12/06/20 Range/Units 05:29 WBC (4.0-11.0) K/uL RBC (4.50-5.90) M/uL Hgb (13.0-17.0) g/dL Hct (38.0-50.0) % MCV (80.0-98.0) fL MCH (27.0-32.0) pg MCHC (31.0-37.0) g/dL RDW Std Deviation (28.0-62.0) fl RDW Coeff of [place] (11.0-15.0) % Plt Count (150-400) K/uL MPV (7.40-12.00) fL Neut % (Auto) (48.0-80.0) % Lymph % (Auto) (16.0-40.0) % [place] % (Auto) (0.0-15.0) % Eos % (Auto) (0.0-7.0) % Baso % (Auto) (0.0-1.5) % Neut # (Auto) (1.4-5.7) K/uL Lymph # (Auto) (0.6-2.4) K/uL [place] # (Auto) (0.0-0.8) K/uL Eos # (Auto) (0.0-0.7) K/uL Baso # (Auto) (0.0-0.1) K/uL Nucleated RBC % /100WBC Nucleated RBCs # K/uL Sodium 133 L (136-148) mmol/L Potassium 4.2 (3.5-5.1) mmol/L Chloride 98 (98-107) mmol/L Carbon Dioxide 24.9 (21.0-32.0) mmol/L BUN 16 (7.0-18.0) mg/dL Creatinine 1.0 (0.8-1.3) mg/dL Est Cr Clr Drug Dosing 94.13 mL/min Estimated GFR (MDRD) > 60.0 ml/min Glucose 136 H (74-106) mg/dL Calcium 8.1 L (8.5-10.1) mg/dL Magnesium 2.5 H (1.8-2.4) mg/dL Total Bilirubin 0.6 (0.2-1.0) mg/dL AST 56 H (15-37) IU/L ALT 54 (14-63) IU/L Alkaline Phosphatase 41 L (46-116) U/L Creatine Kinase 485 H (26-308) U/L Troponin I (0.000-0.056) ng/mL Total Protein 6.7 (6.4-8.2) g/dL Albumin 2.9 L (3.4-5.0) g/dL Globulin 3.8 (2.6-4.0) g/dL Albumin/Globulin Ratio 0.8 L (0.9-1.6) Lipase 497 H (73-393) U/L Result Diagrams: 12/06/20 05:29 12/06/20 05:29 Sepsis Event Note - Evaluation Sepsis Screening Result: No Definite Risk - Focused Exam Vital Signs: Vital Signs Temp Pulse Resp BP Pulse Ox 12/06/20 08:00 95.7 F L 79 18 120/74 91 L 12/06/20 03:41 96.6 F L 84 20 110/71 94 L 12/05/20 23:15 97.0 F 88 20 139/79 93 L - Problem List Review Problem List Initiated/Reviewed/Updated: Yes - Plan Plan:: 50-year-old male admitted for Covid pneumonia, on day 2 of remdesivir and dexamethasone. Patient is currently on 4 L nasal cannula saturating at 94%. He is not in respiratory distress. He denies abdominal pain or muscle pain. Continue patient on the Covid regimen. Incentive spirometry. Wean oxygen as tolerated.
[2020-12-06] MEDS: REMDESIVIR 100 MG in Sodium Chloride 0.9% 100 ML IV SCH (20:07)
[2020-12-07 06:25] LABS: BLOOD UREA NITROGEN,BUN 17 mg/dL (7.0-18.0); CARBON DIOXIDE,CO2 26.9 mmol/L (21.0-32.0); CHLORIDE,CL 100 mmol/L (98-107); GLUCOSE RANDOM 144 mg/dL (74-106); SODIUM,NA 137 mmol/L (136-148)
[2020-12-07] MEDS ORDERED: Albuterol/Ipratropium 3.0-0.5 MG/3 ML Neb Soln NEB PRN (08:11)
[2020-12-07 08:15] LABS: LIPASE 433 U/L (73-393)
[2020-12-07] MEDS ORDERED: Albuterol/Ipratropium 4 GM Inhalation Spray INH SCH (08:15)
[2020-12-07] MEDS: Albuterol/Ipratropium 4 GM Inhalation Spray INH SCH ×3 (10:29→21:34)
--- NOTE | 2020-12-07 11:58 | PCM.PN ---
- General Info Date of Service: 12/07/20 Admission Dx/Problem (Free Text): Admission Diagnosis/Problem Admission Diagnosis/Problem Pneumonia Subjective Update: 50-year-old male admitted for Covid pneumonia. He states he feels better this morning with his breathing and cough but states that he gets very short of breath when he has to get up and go to the bathroom. Yesterday his oxygen was increased to 5 L nasal cannula from 4 L. Overnight he remained on 5 L. This morning he was saturating in the high 80s and RT advised patient be placed on heated high flow. Currently he is on heated high flow and tolerating well, saturating at 94%. Denies chest pain or tightness. Denies abdominal pain, nausea or vomiting. He does not appear to be in respiratory distress and is resting comfortably. He denies muscle pain or hematuria. - Review of Systems General: Reports: Weakness, Fatigue. Denies: Fever, Chills HEENT: Reports: No Symptoms Pulmonary: Reports: Shortness of Breath. Denies: Pleuritic Chest Pain Cardiovascular: Reports: No Symptoms Gastrointestinal: Reports: No Symptoms Genitourinary: Reports: No Symptoms Musculoskeletal: Reports: No Symptoms Skin: Reports: No Symptoms Neurological: Reports: No Symptoms - Patient Data Vitals - Most Recent: Last Vital Signs Temp 96.3 F L 12/07/20 11:15 Pulse 82 12/07/20 11:15 Resp 22 H 12/07/20 11:15 BP 116/78 12/07/20 11:15 Pulse Ox 91 L 12/07/20 11:15 Weight - Most Recent: 246 lb 1.6 oz I&O - Last 24 Hours: Intake & Output 12/06/20 12/07/20 12/07/20 22:59 06:59 14:59 Intake Total 600 600 Balance 600 600 Lab Results Last 24 Hours: Laboratory Results - last 24 hr 12/07/20 12/07/20 12/07/20 Range/Units 05:25 05:25 05:25 WBC 9.90 (4.0-11.0) K/uL RBC 5.46 (4.50-5.90) M/uL Hgb 16.0 (13.0-17.0) g/dL Hct 45.9 (38.0-50.0) % MCV 84.1 (80.0-98.0) fL MCH 29.3 (27.0-32.0) pg MCHC 34.9 (31.0-37.0) g/dL RDW Std Deviation 39.3 (28.0-62.0) fl RDW Coeff of [place] 13 (11.0-15.0) % Plt Count 321 (150-400) K/uL MPV 10.20 (7.40-12.00) fL Neut % (Auto) 84.1 H (48.0-80.0) % Lymph % (Auto) 10.9 L (16.0-40.0) % [place] % (Auto) 4.9 (0.0-15.0) % Eos % (Auto) 0.0 (0.0-7.0) % Baso % (Auto) 0.1 (0.0-1.5) % Neut # (Auto) 8.3 H (1.4-5.7) K/uL Lymph # (Auto) 1.1 (0.6-2.4) K/uL [place] # (Auto) 0.5 (0.0-0.8) K/uL Eos # (Auto) 0.0 (0.0-0.7) K/uL Baso # (Auto) 0.0 (0.0-0.1) K/uL Nucleated RBC % 0.0 /100WBC Nucleated RBCs # 0 K/uL Sodium 137 (136-148) mmol/L Potassium 4.0 (3.5-5.1) mmol/L Chloride 100 (98-107) mmol/L Carbon Dioxide 26.9 (21.0-32.0) mmol/L BUN 17 (7.0-18.0) mg/dL Creatinine 1.0 (0.8-1.3) mg/dL Est Cr Clr Drug Dosing 94.13 mL/min Estimated GFR (MDRD) > 60.0 ml/min Glucose 144 H (74-106) mg/dL Calcium 8.6 (8.5-10.1) mg/dL Total Bilirubin 0.6 (0.2-1.0) mg/dL AST 47 H (15-37) IU/L ALT 66 H (14-63) IU/L Alkaline Phosphatase 46 (46-116) U/L Creatine Kinase 181 (26-308) U/L Total Protein 6.7 (6.4-8.2) g/dL Albumin 2.8 L (3.4-5.0) g/dL Globulin 3.9 (2.6-4.0) g/dL Albumin/Globulin Ratio 0.7 L (0.9-1.6) Lipase 433 H (73-393) U/L Med Orders - Current: Current Medications Acetaminophen (Acetaminophen 325 Mg Tab) 650 mg PO Q4H PRN PRN Reason: Pain (Mild 1-3)/fever Albuterol/Ipratropium (Albuterol/Ipratropium 4 Gm Inhalation [place]) 0 gm INH Q6H [facility] Last Admin: 12/07/20 10:29 Dose: 1 inhalation Documented by: Dexamethasone (Dexamethasone 4 Mg Tab) 6 mg PO Q24H [facility] Last Admin: 12/06/20 23:00 Dose: 6 mg Documented by: Enoxaparin Sodium (Enoxaparin 40 Mg/0.4 Ml Syringe) 40 mg SUBCUT Q24H [facility] Last Admin: 12/06/20 23:02 Dose: 40 mg Documented by: Remdesivir 100 mg/ Sodium (Chloride) 100 mls @ 100 mls/hr IV Q24H [facility] Stop: 12/09/20 21:59 Last Admin: 12/06/20 20:07 Dose: 100 mls/hr Documented by: Sodium Chloride (Sodium Chloride 0.9% 10 Ml Syringe) 10 ml FLUSH ASDIRECTED PRN PRN Reason: Keep Vein Open Last Admin: 12/05/20 19:08 Dose: 10 ml Documented by: Sodium Chloride (Sodium Chloride 0.9% 2.5 Ml Syringe) 2.5 ml FLUSH ASDIRECTED PRN PRN Reason: Keep Vein Open Discontinued Medications Albuterol/Ipratropium (Albuterol/Ipratropium 4 Gm Inhalation [place]) 0 gm INH Q6H [facility] Last Admin: 12/07/20 09:55 Dose: Not Given Documented by: Sodium Chloride (Normal Saline) 1,000 mls @ 500 mls/hr IV .Bolus ONE Stop: 12/05/20 20:38 Last Admin: 12/05/20 19:08 Dose: 500 mls/hr Documented by: Remdesivir 200 mg/ Sodium (Chloride) 250 mls @ 250 mls/hr IV ONETIME ONE Stop: 12/05/20 23:36 Last Admin: 12/06/20 00:20 Dose: 250 mls/hr Documented by: - Exam Quality Assessment: Supplemental Oxygen General: Alert, Oriented HEENT: Pupils Equal Neck: Supple, No JVD Lungs: Decreased Breath Sounds. No: Wheezing Cardiovascular: Regular Rate, Regular Rhythm GI/Abdominal Exam: Normal Bowel Sounds, Soft, Non-Tender Extremities: Normal Inspection Neurological: No New Focal Deficit - Patient Data Lab Results Last 24 hrs: Laboratory Results - last 24 hr 12/07/20 12/07/20 12/07/20 Range/Units 05:25 05:25 05:25 WBC 9.90 (4.0-11.0) K/uL RBC 5.46 (4.50-5.90) M/uL Hgb 16.0 (13.0-17.0) g/dL Hct 45.9 (38.0-50.0) % MCV 84.1 (80.0-98.0) fL MCH 29.3 (27.0-32.0) pg MCHC 34.9 (31.0-37.0) g/dL RDW Std Deviation 39.3 (28.0-62.0) fl RDW Coeff of [place] 13 (11.0-15.0) % Plt Count 321 (150-400) K/uL MPV 10.20 (7.40-12.00) fL Neut % (Auto) 84.1 H (48.0-80.0) % Lymph % (Auto) 10.9 L (16.0-40.0) % [place] % (Auto) 4.9 (0.0-15.0) % Eos % (Auto) 0.0 (0.0-7.0) % Baso % (Auto) 0.1 (0.0-1.5) % Neut # (Auto) 8.3 H (1.4-5.7) K/uL Lymph # (Auto) 1.1 (0.6-2.4) K/uL [place] # (Auto) 0.5 (0.0-0.8) K/uL Eos # (Auto) 0.0 (0.0-0.7) K/uL Baso # (Auto) 0.0 (0.0-0.1) K/uL Nucleated RBC % 0.0 /100WBC Nucleated RBCs # 0 K/uL Sodium 137 (136-148) mmol/L Potassium 4.0 (3.5-5.1) mmol/L Chloride 100 (98-107) mmol/L Carbon Dioxide 26.9 (21.0-32.0) mmol/L BUN 17 (7.0-18.0) mg/dL Creatinine 1.0 (0.8-1.3) mg/dL Est Cr Clr Drug Dosing 94.13 mL/min Estimated GFR (MDRD) > 60.0 ml/min Glucose 144 H (74-106) mg/dL Calcium 8.6 (8.5-10.1) mg/dL Total Bilirubin 0.6 (0.2-1.0) mg/dL AST 47 H (15-37) IU/L ALT 66 H (14-63) IU/L Alkaline Phosphatase 46 (46-116) U/L Creatine Kinase 181 (26-308) U/L Total Protein 6.7 (6.4-8.2) g/dL Albumin 2.8 L (3.4-5.0) g/dL Globulin 3.9 (2.6-4.0) g/dL Albumin/Globulin Ratio 0.7 L (0.9-1.6) Lipase 433 H (73-393) U/L Result Diagrams: 12/07/20 05:25 12/07/20 05:25 Sepsis Event Note - Evaluation Sepsis Screening Result: No Definite Risk - Focused Exam Vital Signs: Vital Signs Temp Pulse Resp BP Pulse Ox 12/07/20 11:15 96.3 F L 82 22 H 116/78 91 L 12/07/20 07:50 96.8 F L 83 28 H 127/87 87 L 12/07/20 03:35 95.7 F L 87 125/72 90 L 12/07/20 00:01 97.2 F 83 18 117/80 94 L - Problem List Review Problem List Initiated/Reviewed/Updated: Yes - My Orders Last 24 Hours: My Active Orders 12/07/20 10:00 Albuterol/Ipratropium [Combivent Respimat] 0 gm INH Q6H 12/08/20 05:11 CBC WITH AUTO DIFF [HEME] AM CREATINE KINASE,CK [CHEM] AM LIPASE [CHEM] AM 12/09/20 05:11 CBC WITH AUTO DIFF [HEME] AM CREATINE KINASE,CK [CHEM] AM LIPASE [CHEM] AM 12/10/20 05:11 CBC WITH AUTO DIFF [HEME] AM CREATINE KINASE,CK [CHEM] AM LIPASE [CHEM] AM 12/11/20 05:11 CBC WITH AUTO DIFF [HEME] AM 12/12/20 05:11 CBC WITH AUTO DIFF [HEME] AM - Plan Plan:: 50-year-old male admitted for COVID pneumonia, on day 3 of remdesivir and dexamethasone. Patient is currently on high flow oxygen. He states he feels better but is not holding saturations. Continue patient on high flow oxygen. Continue patient on Combivent. He is not in respiratory distress. Incentive spirometry.
[2020-12-07] MEDS: REMDESIVIR 100 MG in Sodium Chloride 0.9% 100 ML IV SCH (20:07)
[2020-12-07] MEDS: Enoxaparin 40 MG/0.4 ML Syringe SUBCUT SCH (23:06)
[2020-12-07] MEDS: Dexamethasone 4 MG Tab PO SCH (23:07)
[2020-12-08] MEDS: Albuterol/Ipratropium 4 GM Inhalation Spray INH SCH ×4 (04:35→21:43)
[2020-12-08 06:53] LABS: BLOOD UREA NITROGEN,BUN 16 mg/dL (7.0-18.0); CARBON DIOXIDE,CO2 25.2 mmol/L (21.0-32.0); CHLORIDE,CL 101 mmol/L (98-107); GLUCOSE RANDOM 172 mg/dL (74-106); LIPASE 288 U/L (73-393); SODIUM,NA 135 mmol/L (136-148)
--- NOTE | 2020-12-08 12:32 | PCM.PN ---
<Destiny Langley - Last Filed: 12/08/20 12:27> - General Info Date of Service: 12/08/20 Admission Dx/Problem (Free Text): Admission Diagnosis/Problem Admission Diagnosis/Problem Pneumonia Subjective Update: 50-year-old male admitted for COVID pneumonia. Patient states he is fine laying in bed but gets short of breath when he has to get up and go to the bathroom. He states he continues to feel weak. He is eating but not as much as usual. He states his appetite just is not back yet. Yesterday patient was placed on heated high flow. He is saturating well on this. Flow rate 40, FiO2 70. Saturating at 94%. Denies chest pain or tightness. Denies abdominal pain, nausea or vomiting. He does not appear to be in respiratory distress and is resting comfortably. He denies muscle pain or hematuria. Discussed medication Actemra with the patient he is agreeable to taking this. I spoke with the patient's yesterday to give her an update. - Review of Systems General: Reports: Weakness, Fatigue. Denies: Fever, Chills HEENT: Reports: No Symptoms Pulmonary: Reports: Shortness of Breath, Cough. Denies: Pleuritic Chest Pain Cardiovascular: Reports: Dyspnea on Exertion. Denies: Chest Pain, Palpitations, Orthopnea Gastrointestinal: Reports: Decreased Appetite. Denies: Abdominal Pain, Co nstipation, Diarrhea Genitourinary: Reports: No Symptoms Musculoskeletal: Reports: No Symptoms Skin: Reports: No Symptoms Neurological: Reports: No Symptoms - Patient Data Vitals - Most Recent: Last Vital Signs Temp 95.6 F L 12/08/20 11:56 Pulse 79 12/08/20 11:56 Resp 20 12/08/20 11:56 BP 131/87 12/08/20 11:56 Pulse Ox 91 L 12/08/20 11:56 Weight - Most Recent: 111.629 kg I&O - Last 24 Hours: Intake & Output 12/07/20 12/08/20 12/08/20 22:59 06:59 14:59 Intake Total 1120 470 Output Total 400 600 Balance 720 -130 Lab Results Last 24 Hours: Laboratory Results - last 24 hr 12/08/20 12/08/20 Range/Units 05:32 05:32 WBC 11.88 H (4.0-11.0) K/uL RBC 5.30 (4.50-5.90) M/uL Hgb 15.7 (13.0-17.0) g/dL Hct 44.3 (38.0-50.0) % MCV 83.6 (80.0-98.0) fL MCH 29.6 (27.0-32.0) pg MCHC 35.4 (31.0-37.0) g/dL RDW Std Deviation 39.1 (28.0-62.0) fl RDW Coeff of [place] 13 (11.0-15.0) % Plt Count 361 (150-400) K/uL MPV 10.40 (7.40-12.00) fL Neut % (Auto) 85.9 H (48.0-80.0) % Lymph % (Auto) 9.5 L (16.0-40.0) % [place] % (Auto) 4.5 (0.0-15.0) % Eos % (Auto) 0.0 (0.0-7.0) % Baso % (Auto) 0.1 (0.0-1.5) % Neut # (Auto) 10.2 H (1.4-5.7) K/uL Lymph # (Auto) 1.1 (0.6-2.4) K/uL [place] # (Auto) 0.5 (0.0-0.8) K/uL Eos # (Auto) 0.0 (0.0-0.7) K/uL Baso # (Auto) 0.0 (0.0-0.1) K/uL Nucleated RBC % 0.0 /100WBC Nucleated RBCs # 0 K/uL Sodium 135 L (136-148) mmol/L Potassium 4.0 (3.5-5.1) mmol/L Chloride 101 (98-107) mmol/L Carbon Dioxide 25.2 (21.0-32.0) mmol/L BUN 16 (7.0-18.0) mg/dL Creatinine 0.8 (0.8-1.3) mg/dL Est Cr Clr Drug Dosing 117.66 mL/min Estimated GFR (MDRD) > 60.0 ml/min Glucose 172 H (74-106) mg/dL Calcium 8.3 L (8.5-10.1) mg/dL Total Bilirubin 0.6 (0.2-1.0) mg/dL AST 37 (15-37) IU/L ALT 65 H (14-63) IU/L Alkaline Phosphatase 51 (46-116) U/L Total Protein 6.3 L (6.4-8.2) g/dL Albumin 2.8 L (3.4-5.0) g/dL Globulin 3.5 (2.6-4.0) g/dL Albumin/Globulin Ratio 0.8 L (0.9-1.6) Lipase 288 (73-393) U/L Med Orders - Current: Current Medications Acetaminophen (Acetaminophen 325 Mg Tab) 650 mg PO Q4H PRN PRN Reason: Pain (Mild 1-3)/fever Albuterol/Ipratropium (Albuterol/Ipratropium 4 Gm Inhalation [place]) 0 gm INH Q6H [facility] Last Admin: 12/08/20 09:13 Dose: 2 inhalation Documented by: Dexamethasone (Dexamethasone 4 Mg Tab) 6 mg PO Q24H [facility] Last Admin: 12/07/20 23:07 Dose: 6 mg Documented by: Enoxaparin Sodium (Enoxaparin 40 Mg/0.4 Ml Syringe) 40 mg SUBCUT Q24H [facility] Last Admin: 12/07/20 23:06 Dose: 40 mg Documented by: Remdesivir 100 mg/ Sodium (Chloride) 100 mls @ 100 mls/hr IV Q24H [facility] Stop: 12/09/20 21:59 Last Admin: 12/07/20 20:07 Dose: 100 mls/hr Documented by: Sodium Chloride (Sodium Chloride 0.9% 10 Ml Syringe) 10 ml FLUSH ASDIRECTED PRN PRN Reason: Keep Vein Open Last Admin: 12/05/20 19:08 Dose: 10 ml Documented by: Sodium Chloride (Sodium Chloride 0.9% 2.5 Ml Syringe) 2.5 ml FLUSH ASDIRECTED PRN PRN Reason: Keep Vein Open Discontinued Medications Albuterol/Ipratropium (Albuterol/Ipratropium 4 Gm Inhalation [place]) 0 gm INH Q6H [facility] Last Admin: 12/07/20 09:55 Dose: Not Given Documented by: Sodium Chloride (Normal Saline) 1,000 mls @ 500 mls/hr IV .Bolus ONE Stop: 12/05/20 20:38 Last Admin: 12/05/20 19:08 Dose: 500 mls/hr Documented by: Remdesivir 200 mg/ Sodium (Chloride) 250 mls @ 250 mls/hr IV ONETIME ONE Stop: 12/05/20 23:36 Last Admin: 12/06/20 00:20 Dose: 250 mls/hr Documented by: - Exam Quality Assessment: Supplemental Oxygen General: Alert, Oriented, Cooperative, No Acute Distress Neck: Supple Lungs: Crackles Cardiovascular: Regular Rate, Regular Rhythm GI/Abdominal Exam: Soft, Non-Tender Extremities: Normal Inspection, No Pedal Edema Skin: Warm, Dry, Intact Neurological: No New Focal Deficit - Patient Data Lab Results Last 24 hrs: Laboratory Results - last 24 hr 12/08/20 12/08/20 Range/Units 05:32 05:32 WBC 11.88 H (4.0-11.0) K/uL RBC 5.30 (4.50-5.90) M/uL Hgb 15.7 (13.0-17.0) g/dL Hct 44.3 (38.0-50.0) % MCV 83.6 (80.0-98.0) fL MCH 29.6 (27.0-32.0) pg MCHC 35.4 (31.0-37.0) g/dL RDW Std Deviation 39.1 (28.0-62.0) fl RDW Coeff of [place] 13 (11.0-15.0) % Plt Count 361 (150-400) K/uL MPV 10.40 (7.40-12.00) fL Neut % (Auto) 85.9 H (48.0-80.0) % Lymph % (Auto) 9.5 L (16.0-40.0) % [place] % (Auto) 4.5 (0.0-15.0) % Eos % (Auto) 0.0 (0.0-7.0) % Baso % (Auto) 0.1 (0.0-1.5) % Neut # (Auto) 10.2 H (1.4-5.7) K/uL Lymph # (Auto) 1.1 (0.6-2.4) K/uL [place] # (Auto) 0.5 (0.0-0.8) K/uL Eos # (Auto) 0.0 (0.0-0.7) K/uL Baso # (Auto) 0.0 (0.0-0.1) K/uL Nucleated RBC % 0.0 /100WBC Nucleated RBCs # 0 K/uL Sodium 135 L (136-148) mmol/L Potassium 4.0 (3.5-5.1) mmol/L Chloride 101 (98-107) mmol/L Carbon Dioxide 25.2 (21.0-32.0) mmol/L BUN 16 (7.0-18.0) mg/dL Creatinine 0.8 (0.8-1.3) mg/dL Est Cr Clr Drug Dosing 117.66 mL/min Estimated GFR (MDRD) > 60.0 ml/min Glucose 172 H (74-106) mg/dL Calcium 8.3 L (8.5-10.1) mg/dL Total Bilirubin 0.6 (0.2-1.0) mg/dL AST 37 (15-37) IU/L ALT 65 H (14-63) IU/L Alkaline Phosphatase 51 (46-116) U/L Total Protein 6.3 L (6.4-8.2) g/dL Albumin 2.8 L (3.4-5.0) g/dL Globulin 3.5 (2.6-4.0) g/dL Albumin/Globulin Ratio 0.8 L (0.9-1.6) Lipase 288 (73-393) U/L Result Diagrams: 12/08/20 05:32 12/08/20 05:32 Sepsis Event Note - Evaluation Sepsis Screening Result: No Definite Risk - Focused Exam Vital Signs: Vital Signs Temp Pulse Resp BP BP Pulse Ox 12/08/20 11:56 95.6 F L 79 20 131/87 91 L 12/08/20 07:47 95.5 F L 80 20 125/83 94 L 12/08/20 04:30 97.2 F 71 22 H 134/84 97 - Problem List Review Problem List Initiated/Reviewed/Updated: Yes - My Orders Last 24 Hours: My Active Orders 12/09/20 05:11 CBC WITH AUTO DIFF [HEME] AM 12/10/20 05:11 CBC WITH AUTO DIFF [HEME] AM 12/11/20 05:11 CBC WITH AUTO DIFF [HEME] AM 12/12/20 05:11 CBC WITH AUTO DIFF [HEME] AM - Plan Plan:: 50-year-old male admitted for COVID pneumonia, on day 4 of remdesivir and dexamethasone. Patient is currently on high flow oxygen. Continue patient on Combivent. He is not in respiratory distress. Incentive spirometry. We will get a CRP level and start patient on Actemra as patient is agreeable to this medication. <Bhavin Kirk - Last Filed: 12/08/20 14:08> - Patient Data Vitals - Most Recent: Last Vital Signs Temp 35.3 C L 12/08/20 11:56 Pulse 79 12/08/20 11:56 Resp 20 12/08/20 11:56 BP 131/87 12/08/20 11:56 Pulse Ox 91 L 12/08/20 11:56 I&O - Last 24 Hours: Intake & Output 12/07/20 12/08/20 12/08/20 22:59 06:59 14:59 Intake Total 1120 470 Output Total 400 600 Balance 720 -130 Lab Results Last 24 Hours: Laboratory Results - last 24 hr 12/08/20 12/08/20 Range/Units 05:32 05:32 WBC 11.88 H (4.0-11.0) K/uL RBC 5.30 (4.50-5.90) M/uL Hgb 15.7 (13.0-17.0) g/dL Hct 44.3 (38.0-50.0) % MCV 83.6 (80.0-98.0) fL MCH 29.6 (27.0-32.0) pg MCHC 35.4 (31.0-37.0) g/dL RDW Std Deviation 39.1 (28.0-62.0) fl RDW Coeff of [place] 13 (11.0-15.0) % Plt Count 361 (150-400) K/uL MPV 10.40 (7.40-12.00) fL Neut % (Auto) 85.9 H (48.0-80.0) % Lymph % (Auto) 9.5 L (16.0-40.0) % [place] % (Auto) 4.5 (0.0-15.0) % Eos % (Auto) 0.0 (0.0-7.0) % Baso % (Auto) 0.1 (0.0-1.5) % Neut # (Auto) 10.2 H (1.4-5.7) K/uL Lymph # (Auto) 1.1 (0.6-2.4) K/uL [place] # (Auto) 0.5 (0.0-0.8) K/uL Eos # (Auto) 0.0 (0.0-0.7) K/uL Baso # (Auto) 0.0 (0.0-0.1) K/uL Nucleated RBC % 0.0 /100WBC Nucleated RBCs # 0 K/uL Sodium 135 L (136-148) mmol/L Potassium 4.0 (3.5-5.1) mmol/L Chloride 101 (98-107) mmol/L Carbon Dioxide 25.2 (21.0-32.0) mmol/L BUN 16 (7.0-18.0) mg/dL Creatinine 0.8 (0.8-1.3) mg/dL Est Cr Clr Drug Dosing 117.66 mL/min Estimated GFR (MDRD) > 60.0 ml/min Glucose 172 H (74-106) mg/dL Calcium 8.3 L (8.5-10.1) mg/dL Total Bilirubin 0.6 (0.2-1.0) mg/dL AST 37 (15-37) IU/L ALT 65 H (14-63) IU/L Alkaline Phosphatase 51 (46-116) U/L Total Protein 6.3 L (6.4-8.2) g/dL Albumin 2.8 L (3.4-5.0) g/dL Globulin 3.5 (2.6-4.0) g/dL Albumin/Globulin Ratio 0.8 L (0.9-1.6) Lipase 288 (73-393) U/L Med Orders - Current: Current Medications Acetaminophen (Acetaminophen 325 Mg Tab) 650 mg PO Q4H PRN PRN Reason: Pain (Mild 1-3)/fever Albuterol/Ipratropium (Albuterol/Ipratropium 4 Gm Inhalation [place]) 0 gm INH Q6H [facility] Last Admin: 12/08/20 09:13 Dose: 2 inhalation Documented by: Dexamethasone (Dexamethasone 4 Mg Tab) 6 mg PO Q24H [facility] Last Admin: 12/07/20 23:07 Dose: 6 mg Documented by: Enoxaparin Sodium (Enoxaparin 40 Mg/0.4 Ml Syringe) 40 mg SUBCUT Q24H [facility] Last Admin: 12/07/20 23:06 Dose: 40 mg Documented by: Remdesivir 100 mg/ Sodium (Chloride) 100 mls @ 100 mls/hr IV Q24H [facility] Stop: 12/09/20 21:59 Last Admin: 12/07/20 20:07 Dose: 100 mls/hr Documented by: Sodium Chloride (Sodium Chloride 0.9% 10 Ml Syringe) 10 ml FLUSH ASDIRECTED PRN PRN Reason: Keep Vein Open Last Admin: 12/05/20 19:08 Dose: 10 ml Documented by: Sodium Chloride (Sodium Chloride 0.9% 2.5 Ml Syringe) 2.5 ml FLUSH ASDIRECTED PRN PRN Reason: Keep Vein Open Discontinued Medications Albuterol/Ipratropium (Albuterol/Ipratropium 4 Gm Inhalation [place]) 0 gm INH Q6H [facility] Last Admin: 12/07/20 09:55 Dose: Not Given Documented by: Sodium Chloride (Normal Saline) 1,000 mls @ 500 mls/hr IV .Bolus ONE Stop: 12/05/20 20:38 Last Admin: 12/05/20 19:08 Dose: 500 mls/hr Documented by: Remdesivir 200 mg/ Sodium (Chloride) 250 mls @ 250 mls/hr IV ONETIME ONE Stop: 12/05/20 23:36 Last Admin: 12/06/20 00:20 Dose: 250 mls/hr Documented by: - Patient Data Lab Results Last 24 hrs: Laboratory Results - last 24 hr 12/08/20 12/08/20 Range/Units 05:32 05:32 WBC 11.88 H (4.0-11.0) K/uL RBC 5.30 (4.50-5.90) M/uL Hgb 15.7 (13.0-17.0) g/dL Hct 44.3 (38.0-50.0) % MCV 83.6 (80.0-98.0) fL MCH 29.6 (27.0-32.0) pg MCHC 35.4 (31.0-37.0) g/dL RDW Std Deviation 39.1 (28.0-62.0) fl RDW Coeff of [place] 13 (11.0-15.0) % Plt Count 361 (150-400) K/uL MPV 10.40 (7.40-12.00) fL Neut % (Auto) 85.9 H (48.0-80.0) % Lymph % (Auto) 9.5 L (16.0-40.0) % [place] % (Auto) 4.5 (0.0-15.0) % Eos % (Auto) 0.0 (0.0-7.0) % Baso % (Auto) 0.1 (0.0-1.5) % Neut # (Auto) 10.2 H (1.4-5.7) K/uL Lymph # (Auto) 1.1 (0.6-2.4) K/uL [place] # (Auto) 0.5 (0.0-0.8) K/uL Eos # (Auto) 0.0 (0.0-0.7) K/uL Baso # (Auto) 0.0 (0.0-0.1) K/uL Nucleated RBC % 0.0 /100WBC Nucleated RBCs # 0 K/uL Sodium 135 L (136-148) mmol/L Potassium 4.0 (3.5-5.1) mmol/L Chloride 101 (98-107) mmol/L Carbon Dioxide 25.2 (21.0-32.0) mmol/L BUN 16 (7.0-18.0) mg/dL Creatinine 0.8 (0.8-1.3) mg/dL Est Cr Clr Drug Dosing 117.66 mL/min Estimated GFR (MDRD) > 60.0 ml/min Glucose 172 H (74-106) mg/dL Calcium 8.3 L (8.5-10.1) mg/dL Total Bilirubin 0.6 (0.2-1.0) mg/dL AST 37 (15-37) IU/L ALT 65 H (14-63) IU/L Alkaline Phosphatase 51 (46-116) U/L Total Protein 6.3 L (6.4-8.2) g/dL Albumin 2.8 L (3.4-5.0) g/dL Globulin 3.5 (2.6-4.0) g/dL Albumin/Globulin Ratio 0.8 L (0.9-1.6) Lipase 288 (73-393) U/L Result Diagrams: 12/08/20 05:32 12/08/20 05:32 Sepsis Event Note - Focused Exam Vital Signs: Vital Signs Temp Pulse Resp BP BP Pulse Ox 12/08/20 11:56 35.3 C L 79 20 131/87 91 L 12/08/20 07:47 35.3 C L 80 20 125/83 94 L 12/08/20 04:30 36.2 C 71 22 H 134/84 97 - Plan Plan:: I have seen and evaluated the patient and agree with the residents note unless specified in my note
[2020-12-08] MEDS ORDERED: Tocilizumab 800 MG in Sodium Chloride 0.9% 100 ML IV ONE (16:07)
--- NOTE | 2020-12-08 19:18 | PCM.EKG ---
#1 Interpretation EKG Date: 12/05/20 Time: 19:17 Rhythm: NSR Rate (Beats/Min): 99 ST-T: Normal
[2020-12-08] MEDS: REMDESIVIR 100 MG in Sodium Chloride 0.9% 100 ML IV SCH (21:42)
[2020-12-08] MEDS: Enoxaparin 40 MG/0.4 ML Syringe SUBCUT SCH (23:14)
[2020-12-08] MEDS: Dexamethasone 4 MG Tab PO SCH (23:14)
[2020-12-09] MEDS: Albuterol/Ipratropium 4 GM Inhalation Spray INH SCH ×4 (04:54→21:12)
[2020-12-09 07:30] LABS: BLOOD UREA NITROGEN,BUN 14 mg/dL (7.0-18.0); CARBON DIOXIDE,CO2 24.7 mmol/L (21.0-32.0); CHLORIDE,CL 100 mmol/L (98-107); GLUCOSE RANDOM 183 mg/dL (74-106); POTASSIUM,K 4.2 mmol/L (3.5-5.1); SODIUM,NA 134 mmol/L (136-148)
--- NOTE | 2020-12-09 13:48 | PCM.PN ---
- General Info Date of Service: 12/09/20 Subjective Update: Patient states he feels fine this morning. Denies fever, chills, nausea, vomiting, chest pain, shortness of breath. Patient is wondering when he will receive Actemra medication and was advised as soon as medication becomes available. - Patient Data Vitals - Most Recent: Last Vital Signs Temp 96.8 F L 12/09/20 08:08 Pulse 81 12/09/20 08:08 Resp 22 H 12/09/20 08:08 BP 128/69 12/09/20 08:08 Pulse Ox 92 L 12/09/20 08:08 Weight - Most Recent: 246 lb 1.6 oz I&O - Last 24 Hours: Intake & Output 12/08/20 12/09/20 12/09/20 22:59 06:59 14:59 Intake Total 1000 1300 Output Total 650 1345 Balance 350 -45 Lab Results Last 24 Hours: Laboratory Results - last 24 hr 12/08/20 12/09/20 12/09/20 Range/Units 05:32 06:40 06:40 WBC 12.08 H (4.0-11.0) K/uL RBC 5.51 (4.50-5.90) M/uL Hgb 16.5 (13.0-17.0) g/dL Hct 46.2 (38.0-50.0) % MCV 83.8 (80.0-98.0) fL MCH 29.9 (27.0-32.0) pg MCHC 35.7 (31.0-37.0) g/dL RDW Std Deviation 38.8 (28.0-62.0) fl RDW Coeff of [place] 13 (11.0-15.0) % Plt Count 448 H (150-400) K/uL MPV 9.90 (7.40-12.00) fL Neut % (Auto) 88.7 H (48.0-80.0) % Lymph % (Auto) 6.6 L (16.0-40.0) % [place] % (Auto) 4.6 (0.0-15.0) % Eos % (Auto) 0.0 (0.0-7.0) % Baso % (Auto) 0.1 (0.0-1.5) % Neut # (Auto) 10.7 H (1.4-5.7) K/uL Lymph # (Auto) 0.8 (0.6-2.4) K/uL [place] # (Auto) 0.6 (0.0-0.8) K/uL Eos # (Auto) 0.0 (0.0-0.7) K/uL Baso # (Auto) 0.0 (0.0-0.1) K/uL Nucleated RBC % 0.0 /100WBC Nucleated RBCs # 0 K/uL Sodium 134 L (136-148) mmol/L Potassium 4.2 (3.5-5.1) mmol/L Chloride 100 (98-107) mmol/L Carbon Dioxide 24.7 (21.0-32.0) mmol/L BUN 14 (7.0-18.0) mg/dL Creatinine 1.0 (0.8-1.3) mg/dL Est Cr Clr Drug Dosing 94.13 mL/min Estimated GFR (MDRD) > 60.0 ml/min Glucose 183 H (74-106) mg/dL Calcium 8.3 L (8.5-10.1) mg/dL Total Bilirubin 0.7 (0.2-1.0) mg/dL AST 32 (15-37) IU/L ALT 69 H (14-63) IU/L Alkaline Phosphatase 53 (46-116) U/L C-Reactive Protein 2.50 H (0.00-0.90) mg/dL Total Protein 6.6 (6.4-8.2) g/dL Albumin 3.1 L (3.4-5.0) g/dL Globulin 3.5 (2.6-4.0) g/dL Albumin/Globulin Ratio 0.9 (0.9-1.6) Med Orders - Current: Current Medications Acetaminophen (Acetaminophen 325 Mg Tab) 650 mg PO Q4H PRN PRN Reason: Pain (Mild 1-3)/fever Albuterol/Ipratropium (Albuterol/Ipratropium 4 Gm Inhalation [place]) 0 gm INH Q6H [facility] Last Admin: 12/09/20 09:48 Dose: 2 inhalation Documented by: Dexamethasone (Dexamethasone 4 Mg Tab) 6 mg PO Q24H [facility] Last Admin: 12/08/20 23:14 Dose: 6 mg Documented by: Enoxaparin Sodium (Enoxaparin 40 Mg/0.4 Ml Syringe) 40 mg SUBCUT Q24H [facility] Last Admin: 12/08/20 23:14 Dose: 40 mg Documented by: Remdesivir 100 mg/ Sodium (Chloride) 100 mls @ 100 mls/hr IV Q24H [facility] Stop: 12/09/20 21:59 Last Admin: 12/08/20 21:42 Dose: 100 mls/hr Documented by: Tocilizumab 800 mg/ Sodium (Chloride) 140 mls @ 140 mls/hr IV ONETIME ONE Stop: 12/08/20 16:08 Sodium Chloride (Sodium Chloride 0.9% 10 Ml Syringe) 10 ml FLUSH ASDIRECTED PRN PRN Reason: Keep Vein Open Last Admin: 12/05/20 19:08 Dose: 10 ml Documented by: Sodium Chloride (Sodium Chloride 0.9% 2.5 Ml Syringe) 2.5 ml FLUSH ASDIRECTED PRN PRN Reason: Keep Vein Open Discontinued Medications Albuterol/Ipratropium (Albuterol/Ipratropium 4 Gm Inhalation [place]) 0 gm INH Q6H [facility] Last Admin: 12/07/20 09:55 Dose: Not Given Documented by: Sodium Chloride (Normal Saline) 1,000 mls @ 500 mls/hr IV .Bolus ONE Stop: 12/05/20 20:38 Last Admin: 12/05/20 19:08 Dose: 500 mls/hr Documented by: Remdesivir 200 mg/ Sodium (Chloride) 250 mls @ 250 mls/hr IV ONETIME ONE Stop: 12/05/20 23:36 Last Admin: 12/06/20 00:20 Dose: 250 mls/hr Documented by: - Exam Quality Assessment: Supplemental Oxygen General: Alert, Oriented Lungs: Clear to Auscultation, Normal Respiratory Effort Cardiovascular: Regular Rate, Regular Rhythm GI/Abdominal Exam: Soft, Non-Tender Extremities: No Pedal Edema Psy/Mental Status: Alert - Patient Data Lab Results Last 24 hrs: Laboratory Results - last 24 hr 12/08/20 12/09/20 12/09/20 Range/Units 05:32 06:40 06:40 WBC 12.08 H (4.0-11.0) K/uL RBC 5.51 (4.50-5.90) M/uL Hgb 16.5 (13.0-17.0) g/dL Hct 46.2 (38.0-50.0) % MCV 83.8 (80.0-98.0) fL MCH 29.9 (27.0-32.0) pg MCHC 35.7 (31.0-37.0) g/dL RDW Std Deviation 38.8 (28.0-62.0) fl RDW Coeff of [place] 13 (11.0-15.0) % Plt Count 448 H (150-400) K/uL MPV 9.90 (7.40-12.00) fL Neut % (Auto) 88.7 H (48.0-80.0) % Lymph % (Auto) 6.6 L (16.0-40.0) % [place] % (Auto) 4.6 (0.0-15.0) % Eos % (Auto) 0.0 (0.0-7.0) % Baso % (Auto) 0.1 (0.0-1.5) % Neut # (Auto) 10.7 H (1.4-5.7) K/uL Lymph # (Auto) 0.8 (0.6-2.4) K/uL [place] # (Auto) 0.6 (0.0-0.8) K/uL Eos # (Auto) 0.0 (0.0-0.7) K/uL Baso # (Auto) 0.0 (0.0-0.1) K/uL Nucleated RBC % 0.0 /100WBC Nucleated RBCs # 0 K/uL Sodium 134 L (136-148) mmol/L Potassium 4.2 (3.5-5.1) mmol/L Chloride 100 (98-107) mmol/L Carbon Dioxide 24.7 (21.0-32.0) mmol/L BUN 14 (7.0-18.0) mg/dL Creatinine 1.0 (0.8-1.3) mg/dL Est Cr Clr Drug Dosing 94.13 mL/min Estimated GFR (MDRD) > 60.0 ml/min Glucose 183 H (74-106) mg/dL Calcium 8.3 L (8.5-10.1) mg/dL Total Bilirubin 0.7 (0.2-1.0) mg/dL AST 32 (15-37) IU/L ALT 69 H (14-63) IU/L Alkaline Phosphatase 53 (46-116) U/L C-Reactive Protein 2.50 H (0.00-0.90) mg/dL Total Protein 6.6 (6.4-8.2) g/dL Albumin 3.1 L (3.4-5.0) g/dL Globulin 3.5 (2.6-4.0) g/dL Albumin/Globulin Ratio 0.9 (0.9-1.6) Result Diagrams: 12/09/20 06:40 12/09/20 06:40 Sepsis Event Note - Evaluation Sepsis Screening Result: No Definite Risk - Focused Exam Vital Signs: Vital Signs Temp Pulse Resp BP Pulse Ox 12/09/20 08:08 96.8 F L 81 22 H 128/69 92 L 12/09/20 04:52 96.2 F L 87 25 H 122/58 L 90 L - Problem List & Annotations (1) Pneumonia due to COVID-19 virus SNOMED Code(s): 418436716266024588 Code(s): U07.1 - COVID-19; J12.82 - PNEUMONIA DUE TO CORONAVIRUS DISEASE 2019 Status: Acute Current Visit: Yes (2) COVID-19 SNOMED Code(s): 340280366 Code(s): U07.1 - COVID-19 Status: Acute Current Visit: No - Problem List Review Problem List Initiated/Reviewed/Updated: Yes - Plan Plan:: COVID pneumonia- Remdesivir day 5, dexamethasone, oxygen support as needed (currently on heated high flow 40, FiO2 70%), Combivent, I/S, prone positioning, lovenox q24hr. Patient will receive Actemra as it becomes available. Patient encouraged to sit upright and ambulate as tolerated.
[2020-12-09] MEDS: REMDESIVIR 100 MG in Sodium Chloride 0.9% 100 ML IV SCH (21:14)
[2020-12-09] MEDS: Enoxaparin 40 MG/0.4 ML Syringe SUBCUT SCH (23:35)
[2020-12-09] MEDS: Dexamethasone 4 MG Tab PO SCH (23:36)
[2020-12-10] MEDS: Albuterol/Ipratropium 4 GM Inhalation Spray INH SCH ×4 (04:13→21:45)
[2020-12-10 07:03] LABS: BLOOD UREA NITROGEN,BUN 14 mg/dL (7.0-18.0); CHLORIDE,CL 101 mmol/L (98-107); GLUCOSE RANDOM 174 mg/dL (74-106); POTASSIUM,K 4.6 mmol/L (3.5-5.1); SODIUM,NA 135 mmol/L (136-148)
--- NOTE | 2020-12-10 12:09 | PCM.PN ---
- General Info Date of Service: 12/10/20 Admission Dx/Problem (Free Text): Admission Diagnosis/Problem Admission Diagnosis/Problem Pneumonia Subjective Update: Patient states he is feeling better with improvement of his dyspnea on exertion. He states he can walk further without getting as short of breath. He also is able to catch his breath quicker after ambulating. He says his cough is better and no longer dry as he is now able to cough up clear sputum. Patient remains on heated high flow at 40 L, FiO2 65. We will do a CPAP trial today for a few hours. His appetite is improved. Patient had a bowel movement. Denies fever, chills, nausea, vomiting or diarrhea. Denies chest pain, palpitations or shortness of breath. - Review of Systems General: Reports: Fatigue. Denies: Fever, Night Sweats HEENT: Reports: No Symptoms Pulmonary: Reports: Cough, Sputum. Denies: Pleuritic Chest Pain Cardiovascular: Reports: Dyspnea on Exertion. Denies: Chest Pain, Palpitations, Orthopnea, Edema, Lightheadedness Gastrointestinal: Denies: Abdominal Pain, Constipation, Decreased Appetite, Diarrhea Genitourinary: Reports: No Symptoms Musculoskeletal: Reports: No Symptoms Skin: Reports: No Symptoms Neurological: Reports: No Symptoms - Patient Data Vitals - Most Recent: Last Vital Signs Temp 97.9 F 12/10/20 10:17 Pulse 77 12/10/20 10:17 Resp 20 12/10/20 10:17 BP 122/71 12/10/20 10:17 Pulse Ox 90 L 12/10/20 10:27 Weight - Most Recent: 246 lb 1.6 oz I&O - Last 24 Hours: Intake & Output 12/09/20 12/10/20 12/10/20 22:59 06:59 14:59 Intake Total 1300 1340 Output Total 900 1500 Balance 400 -160 Lab Results Last 24 Hours: Laboratory Results - last 24 hr 12/10/20 12/10/20 Range/Units 06:25 06:25 WBC 9.67 (4.0-11.0) K/uL RBC 5.28 (4.50-5.90) M/uL Hgb 15.5 (13.0-17.0) g/dL Hct 44.3 (38.0-50.0) % MCV 83.9 (80.0-98.0) fL MCH 29.4 (27.0-32.0) pg MCHC 35.0 (31.0-37.0) g/dL RDW Std Deviation 39.4 (28.0-62.0) fl RDW Coeff of [place] 13 (11.0-15.0) % Plt Count 410 H (150-400) K/uL MPV 9.60 (7.40-12.00) fL Neut % (Auto) 85.3 H (48.0-80.0) % Lymph % (Auto) 9.5 L (16.0-40.0) % [place] % (Auto) 5.1 (0.0-15.0) % Eos % (Auto) 0.0 (0.0-7.0) % Baso % (Auto) 0.1 (0.0-1.5) % Neut # (Auto) 8.3 H (1.4-5.7) K/uL Lymph # (Auto) 0.9 (0.6-2.4) K/uL [place] # (Auto) 0.5 (0.0-0.8) K/uL Eos # (Auto) 0.0 (0.0-0.7) K/uL Baso # (Auto) 0.0 (0.0-0.1) K/uL Nucleated RBC % 0.0 /100WBC Nucleated RBCs # 0 K/uL Sodium 135 L (136-148) mmol/L Potassium 4.6 (3.5-5.1) mmol/L Chloride 101 (98-107) mmol/L Carbon Dioxide 25.0 (21.0-32.0) mmol/L BUN 14 (7.0-18.0) mg/dL Creatinine 0.9 (0.8-1.3) mg/dL Est Cr Clr Drug Dosing 104.58 mL/min Estimated GFR (MDRD) > 60.0 ml/min Glucose 174 H (74-106) mg/dL Calcium 8.2 L (8.5-10.1) mg/dL Total Bilirubin 0.5 (0.2-1.0) mg/dL AST 31 (15-37) IU/L ALT 60 (14-63) IU/L Alkaline Phosphatase 45 L (46-116) U/L Total Protein 6.2 L (6.4-8.2) g/dL Albumin 2.9 L (3.4-5.0) g/dL Globulin 3.3 (2.6-4.0) g/dL Albumin/Globulin Ratio 0.9 (0.9-1.6) Med Orders - Current: Current Medications Acetaminophen (Acetaminophen 325 Mg Tab) 650 mg PO Q4H PRN PRN Reason: Pain (Mild 1-3)/fever Albuterol/Ipratropium (Albuterol/Ipratropium 4 Gm Inhalation [place]) 0 gm INH Q6H [facility] Last Admin: 12/10/20 09:22 Dose: 2 inhalation Documented by: Dexamethasone (Dexamethasone 4 Mg Tab) 6 mg PO Q24H [facility] Last Admin: 12/09/20 23:36 Dose: 6 mg Documented by: Enoxaparin Sodium (Enoxaparin 40 Mg/0.4 Ml Syringe) 40 mg SUBCUT Q24H [facility] Last Admin: 12/09/20 23:35 Dose: 40 mg Documented by: Tocilizumab 800 mg/ Sodium (Chloride) 140 mls @ 140 mls/hr IV ONETIME ONE Stop: 12/08/20 16:08 Sodium Chloride (Sodium Chloride 0.9% 10 Ml Syringe) 10 ml FLUSH ASDIRECTED PRN PRN Reason: Keep Vein Open Last Admin: 12/05/20 19:08 Dose: 10 ml Documented by: Sodium Chloride (Sodium Chloride 0.9% 2.5 Ml Syringe) 2.5 ml FLUSH ASDIRECTED PRN PRN Reason: Keep Vein Open Discontinued Medications Albuterol/Ipratropium (Albuterol/Ipratropium 4 Gm Inhalation [place]) 0 gm INH Q6H [facility] Last Admin: 12/07/20 09:55 Dose: Not Given Documented by: Sodium Chloride (Normal Saline) 1,000 mls @ 500 mls/hr IV .Bolus ONE Stop: 12/05/20 20:38 Last Admin: 12/05/20 19:08 Dose: 500 mls/hr Documented by: Remdesivir 200 mg/ Sodium (Chloride) 250 mls @ 250 mls/hr IV ONETIME ONE Stop: 12/05/20 23:36 Last Admin: 12/06/20 00:20 Dose: 250 mls/hr Documented by: Remdesivir 100 mg/ Sodium (Chloride) 100 mls @ 100 mls/hr IV Q24H [facility] Stop: 12/09/20 21:59 Last Admin: 12/09/20 21:14 Dose: 100 mls/hr Documented by: - Exam Quality Assessment: Supplemental Oxygen General: Alert, Oriented, Cooperative HEENT: Pupils Equal Neck: Supple Lungs: Decreased Breath Sounds. No: Wheezing Cardiovascular: Regular Rate, Regular Rhythm, No Murmurs GI/Abdominal Exam: Soft, Non-Tender Extremities: Normal Inspection, No Pedal Edema. No: Gonzalo's Sign Neurological: No New Focal Deficit - Patient Data Lab Results Last 24 hrs: Laboratory Results - last 24 hr 12/10/20 12/10/20 Range/Units 06:25 06:25 WBC 9.67 (4.0-11.0) K/uL RBC 5.28 (4.50-5.90) M/uL Hgb 15.5 (13.0-17.0) g/dL Hct 44.3 (38.0-50.0) % MCV 83.9 (80.0-98.0) fL MCH 29.4 (27.0-32.0) pg MCHC 35.0 (31.0-37.0) g/dL RDW Std Deviation 39.4 (28.0-62.0) fl RDW Coeff of [place] 13 (11.0-15.0) % Plt Count 410 H (150-400) K/uL MPV 9.60 (7.40-12.00) fL Neut % (Auto) 85.3 H (48.0-80.0) % Lymph % (Auto) 9.5 L (16.0-40.0) % [place] % (Auto) 5.1 (0.0-15.0) % Eos % (Auto) 0.0 (0.0-7.0) % Baso % (Auto) 0.1 (0.0-1.5) % Neut # (Auto) 8.3 H (1.4-5.7) K/uL Lymph # (Auto) 0.9 (0.6-2.4) K/uL [place] # (Auto) 0.5 (0.0-0.8) K/uL Eos # (Auto) 0.0 (0.0-0.7) K/uL Baso # (Auto) 0.0 (0.0-0.1) K/uL Nucleated RBC % 0.0 /100WBC Nucleated RBCs # 0 K/uL Sodium 135 L (136-148) mmol/L Potassium 4.6 (3.5-5.1) mmol/L Chloride 101 (98-107) mmol/L Carbon Dioxide 25.0 (21.0-32.0) mmol/L BUN 14 (7.0-18.0) mg/dL Creatinine 0.9 (0.8-1.3) mg/dL Est Cr Clr Drug Dosing 104.58 mL/min Estimated GFR (MDRD) > 60.0 ml/min Glucose 174 H (74-106) mg/dL Calcium 8.2 L (8.5-10.1) mg/dL Total Bilirubin 0.5 (0.2-1.0) mg/dL AST 31 (15-37) IU/L ALT 60 (14-63) IU/L Alkaline Phosphatase 45 L (46-116) U/L Total Protein 6.2 L (6.4-8.2) g/dL Albumin 2.9 L (3.4-5.0) g/dL Globulin 3.3 (2.6-4.0) g/dL Albumin/Globulin Ratio 0.9 (0.9-1.6) Result Diagrams: 12/10/20 06:25 12/10/20 06:25 Sepsis Event Note - Evaluation Sepsis Screening Result: No Definite Risk - Focused Exam Vital Signs: Vital Signs Temp Pulse Resp BP Pulse Ox Pulse Ox 12/10/20 10:27 90 L 12/10/20 10:17 97.9 F 77 20 122/71 91 L 12/10/20 04:12 97.0 F 73 22 H 121/78 92 L - Problem List Review Problem List Initiated/Reviewed/Updated: Yes - My Orders Last 24 Hours: My Active Orders 12/10/20 12:01 RT Communication [RC] ASDIRECTED 12/11/20 05:11 CBC WITH AUTO DIFF [HEME] AM 12/12/20 05:11 CBC WITH AUTO DIFF [HEME] AM - Plan Plan:: Patient is admitted for COVID pneumonia, day 6 of admission. He completed remdesivir yesterday. Continue dexamethasone. Continue supportive measures including Combivent, incentive spirometry, and oxygen support. Currently on heated high flow at 40 L/min, FiO2 65. Improvement from yesterday FiO2 70. We will trial CPAP today for 4 hours. Had a lengthy discussion with the patient regarding the importance of ambulating, sitting up in his chair, and using incentive spirometry.
[2020-12-11] MEDS: Enoxaparin 40 MG/0.4 ML Syringe SUBCUT SCH ×2 (00:01→22:48)
[2020-12-11] MEDS: Dexamethasone 4 MG Tab PO SCH ×2 (00:01→22:49)
[2020-12-11] MEDS: Albuterol/Ipratropium 4 GM Inhalation Spray INH SCH ×4 (03:33→22:47)
[2020-12-11 07:47] LABS: BLOOD UREA NITROGEN,BUN 17 mg/dL (7.0-18.0); CARBON DIOXIDE,CO2 27.4 mmol/L (21.0-32.0); CHLORIDE,CL 99 mmol/L (98-107); GLUCOSE RANDOM 190 mg/dL (74-106); SODIUM,NA 134 mmol/L (136-148)
--- NOTE | 2020-12-11 11:35 | PCM.PN ---
- General Info Date of Service: 12/11/20 Admission Dx/Problem (Free Text): Admission Diagnosis/Problem Admission Diagnosis/Problem Pneumonia Subjective Update: Patient states he is feeling better with improvement of his dyspnea on exertion. He states he can walk further without getting as short of breath. Patient had a 4-hour trial of CPAP yesterday and tolerated this well. Slowly bring down his oxygen requirement. We will do this again today. Good appetite. Denies fever, chills, nausea, vomiting or diarrhea. Denies chest pain, palpitations or shortness of breath. - Review of Systems General: Reports: Weakness. Denies: Fever, Chills HEENT: Reports: No Symptoms Pulmonary: Reports: Shortness of Breath, Cough Cardiovascular: Denies: Chest Pain, Palpitations Gastrointestinal: Reports: No Symptoms Genitourinary: Reports: No Symptoms Musculoskeletal: Reports: No Symptoms Skin: Reports: No Symptoms Neurological: Reports: No Symptoms - Patient Data Vitals - Most Recent: Last Vital Signs Temp 95.4 F L 12/11/20 07:41 Pulse 84 12/11/20 07:41 Resp 18 12/11/20 07:41 BP 103/75 12/11/20 07:41 Pulse Ox 93 L 12/11/20 07:41 Weight - Most Recent: 246 lb 1.6 oz I&O - Last 24 Hours: Intake & Output 12/10/20 12/11/20 12/11/20 22:59 06:59 14:59 Intake Total 1240 1240 Output Total 1300 940 Balance -60 300 Lab Results Last 24 Hours: Laboratory Results - last 24 hr 12/11/20 12/11/20 Range/Units 05:34 05:34 WBC 9.52 (4.0-11.0) K/uL RBC 5.45 (4.50-5.90) M/uL Hgb 15.8 (13.0-17.0) g/dL Hct 46.1 (38.0-50.0) % MCV 84.6 (80.0-98.0) fL MCH 29.0 (27.0-32.0) pg MCHC 34.3 (31.0-37.0) g/dL RDW Std Deviation 39.9 (28.0-62.0) fl RDW Coeff of [place] 13 (11.0-15.0) % Plt Count 410 H (150-400) K/uL MPV 9.70 (7.40-12.00) fL Add Manual Diff YES Neutrophils % (Manual) 80 (48.0-80.0) % Band Neutrophils % 3 % Lymphocytes % (Manual) 11 L (16.0-40.0) % Monocytes % (Manual) 6 (0.0-15.0) % Nucleated RBC % 0.0 /100WBC Absolute Seg Neuts 7.6 H (1.4-5.7) Band Neutrophils # 0.3 Lymphocytes # (Manual) 1.0 (0.6-2.4) Monocytes # (Manual) 0.6 (0.0-0.8) Nucleated RBCs # 0 K/uL Sodium 134 L (136-148) mmol/L Potassium 5.0 (3.5-5.1) mmol/L Chloride 99 (98-107) mmol/L Carbon Dioxide 27.4 (21.0-32.0) mmol/L BUN 17 (7.0-18.0) mg/dL Creatinine 1.0 (0.8-1.3) mg/dL Est Cr Clr Drug Dosing 94.13 mL/min Estimated GFR (MDRD) > 60.0 ml/min Glucose 190 H (74-106) mg/dL Calcium 8.2 L (8.5-10.1) mg/dL Med Orders - Current: Current Medications Acetaminophen (Acetaminophen 325 Mg Tab) 650 mg PO Q4H PRN PRN Reason: Pain (Mild 1-3)/fever Albuterol/Ipratropium (Albuterol/Ipratropium 4 Gm Inhalation [place]) 0 gm INH Q6H [facility] Last Admin: 12/11/20 03:33 Dose: 2 inhalation Documented by: Dexamethasone (Dexamethasone 4 Mg Tab) 6 mg PO Q24H [facility] Last Admin: 12/11/20 00:01 Dose: 6 mg Documented by: Enoxaparin Sodium (Enoxaparin 40 Mg/0.4 Ml Syringe) 40 mg SUBCUT Q24H [facility] Last Admin: 12/11/20 00:01 Dose: 40 mg Documented by: Sodium Chloride (Sodium Chloride 0.9% 10 Ml Syringe) 10 ml FLUSH ASDIRECTED PRN PRN Reason: Keep Vein Open Last Admin: 12/05/20 19:08 Dose: 10 ml Documented by: Sodium Chloride (Sodium Chloride 0.9% 2.5 Ml Syringe) 2.5 ml FLUSH ASDIRECTED PRN PRN Reason: Keep Vein Open Discontinued Medications Albuterol/Ipratropium (Albuterol/Ipratropium 4 Gm Inhalation [place]) 0 gm INH Q6H [facility] Last Admin: 12/07/20 09:55 Dose: Not Given Documented by: Sodium Chloride (Normal Saline) 1,000 mls @ 500 mls/hr IV .Bolus ONE Stop: 12/05/20 20:38 Last Admin: 12/05/20 19:08 Dose: 500 mls/hr Documented by: Remdesivir 200 mg/ Sodium (Chloride) 250 mls @ 250 mls/hr IV ONETIME ONE Stop: 12/05/20 23:36 Last Admin: 12/06/20 00:20 Dose: 250 mls/hr Documented by: Remdesivir 100 mg/ Sodium (Chloride) 100 mls @ 100 mls/hr IV Q24H [facility] Stop: 12/09/20 21:59 Last Admin: 12/09/20 21:14 Dose: 100 mls/hr Documented by: Tocilizumab 800 mg/ Sodium (Chloride) 140 mls @ 140 mls/hr IV ONETIME ONE Stop: 12/08/20 16:08 - Exam General: Alert, Oriented, Cooperative HEENT: Pupils Equal Neck: Supple Lungs: Crackles (L base) Cardiovascular: Regular Rate, Regular Rhythm GI/Abdominal Exam: Soft, Non-Tender Back Exam: Normal Inspection Extremities: No: Gonzalo's Sign Neurological: No New Focal Deficit - Patient Data Lab Results Last 24 hrs: Laboratory Results - last 24 hr 12/11/20 12/11/20 Range/Units 05:34 05:34 WBC 9.52 (4.0-11.0) K/uL RBC 5.45 (4.50-5.90) M/uL Hgb 15.8 (13.0-17.0) g/dL Hct 46.1 (38.0-50.0) % MCV 84.6 (80.0-98.0) fL MCH 29.0 (27.0-32.0) pg MCHC 34.3 (31.0-37.0) g/dL RDW Std Deviation 39.9 (28.0-62.0) fl RDW Coeff of [place] 13 (11.0-15.0) % Plt Count 410 H (150-400) K/uL MPV 9.70 (7.40-12.00) fL Add Manual Diff YES Neutrophils % (Manual) 80 (48.0-80.0) % Band Neutrophils % 3 % Lymphocytes % (Manual) 11 L (16.0-40.0) % Monocytes % (Manual) 6 (0.0-15.0) % Nucleated RBC % 0.0 /100WBC Absolute Seg Neuts 7.6 H (1.4-5.7) Band Neutrophils # 0.3 Lymphocytes # (Manual) 1.0 (0.6-2.4) Monocytes # (Manual) 0.6 (0.0-0.8) Nucleated RBCs # 0 K/uL Sodium 134 L (136-148) mmol/L Potassium 5.0 (3.5-5.1) mmol/L Chloride 99 (98-107) mmol/L Carbon Dioxide 27.4 (21.0-32.0) mmol/L BUN 17 (7.0-18.0) mg/dL Creatinine 1.0 (0.8-1.3) mg/dL Est Cr Clr Drug Dosing 94.13 mL/min Estimated GFR (MDRD) > 60.0 ml/min Glucose 190 H (74-106) mg/dL Calcium 8.2 L (8.5-10.1) mg/dL Result Diagrams: 12/11/20 05:34 12/11/20 05:34 Sepsis Event Note - Evaluation Sepsis Screening Result: No Definite Risk - Focused Exam Vital Signs: Vital Signs Temp Pulse Resp BP Pulse Ox 12/11/20 07:41 95.4 F L 84 18 103/75 93 L 12/11/20 03:19 96.8 F L 80 20 128/87 96 12/10/20 23:59 97.0 F 74 20 120/78 95 - Problem List Review Problem List Initiated/Reviewed/Updated: Yes - My Orders Last 24 Hours: My Active Orders 12/10/20 12:01 RT Communication [RC] ASDIRECTED 12/11/20 11:23 RT BiPAP/CPAP [RC] ASDIRECTED 12/12/20 05:11 CBC WITH AUTO DIFF [HEME] AM CMP [COMPREHENSIVE METABOLIC PN,CMP] [CHEM] AM 12/13/20 05:11 CBC WITH AUTO DIFF [HEME] AM CMP [COMPREHENSIVE METABOLIC PN,CMP] [CHEM] AM 12/14/20 05:11 CBC WITH AUTO DIFF [HEME] AM CMP [COMPREHENSIVE METABOLIC PN,CMP] [CHEM] AM 12/15/20 05:11 CBC WITH AUTO DIFF [HEME] AM CMP [COMPREHENSIVE METABOLIC PN,CMP] [CHEM] AM - Plan Plan:: Patient is admitted for COVID pneumonia, day 7 of admission. He completed remdesivir. Continue dexamethasone. Continue supportive measures including Combivent, incentive spirometry, and oxygen support. Currently on heated high flow at 40 L/min, FiO2 down to 57. Improvement from yesterday FiO2 65. Patient did well with 4 hours of CPAP yesterday. We will try this twice today for 4 hours each.
[2020-12-12] MEDS: Albuterol/Ipratropium 4 GM Inhalation Spray INH SCH ×4 (04:32→23:45)
[2020-12-12 06:34] LABS: BLOOD UREA NITROGEN,BUN 17 mg/dL (7.0-18.0); CARBON DIOXIDE,CO2 30.4 mmol/L (21.0-32.0); CHLORIDE,CL 102 mmol/L (98-107); GLUCOSE RANDOM 187 mg/dL (74-106); POTASSIUM,K 5.1 mmol/L (3.5-5.1); SODIUM,NA 135 mmol/L (136-148)
--- NOTE | 2020-12-12 18:46 | PCM.PN ---
- General Info Date of Service: 12/12/20 Admission Dx/Problem (Free Text): Admission Diagnosis/Problem Admission Diagnosis/Problem Pneumonia Subjective Update: Patient has improved this morning and is now on nasal cannula 2.5 L. Patient states he believes the CPAP is helped him. Is now able to ambulate without dropping his O2 saturation. Good appetite. Denies fever, chills, nausea, vomiting or diarrhea. Denies chest pain, palpitations or shortness of breath. - Review of Systems General: Reports: Weakness HEENT: Reports: No Symptoms Pulmonary: Reports: Cough Cardiovascular: Reports: No Symptoms Gastrointestinal: Reports: No Symptoms, Hematochezia Musculoskeletal: Reports: No Symptoms Skin: Reports: No Symptoms Neurological: Reports: No Symptoms - Patient Data Vitals - Most Recent: Last Vital Signs Temp 97.4 F 12/12/20 16:00 Pulse 94 12/12/20 16:00 Resp 18 12/12/20 16:00 BP 142/91 H 12/12/20 16:00 Pulse Ox 95 12/12/20 16:00 Weight - Most Recent: 246 lb 1.6 oz I&O - Last 24 Hours: Intake & Output 12/12/20 12/12/20 12/12/20 06:59 14:59 22:59 Intake Total 1040 2150 Balance 1040 2150 Lab Results Last 24 Hours: Laboratory Results - last 24 hr 12/12/20 12/12/20 Range/Units 05:20 05:20 WBC 9.07 (4.0-11.0) K/uL RBC 5.34 (4.50-5.90) M/uL Hgb 15.6 (13.0-17.0) g/dL Hct 45.5 (38.0-50.0) % MCV 85.2 (80.0-98.0) fL MCH 29.2 (27.0-32.0) pg MCHC 34.3 (31.0-37.0) g/dL RDW Std Deviation 40.5 (28.0-62.0) fl RDW Coeff of [place] 13 (11.0-15.0) % Plt Count 466 H (150-400) K/uL MPV 9.70 (7.40-12.00) fL Neut % (Auto) 82.0 H (48.0-80.0) % Lymph % (Auto) 12.9 L (16.0-40.0) % [place] % (Auto) 4.6 (0.0-15.0) % Eos % (Auto) 0.3 (0.0-7.0) % Baso % (Auto) 0.2 (0.0-1.5) % Neut # (Auto) 7.4 H (1.4-5.7) K/uL Lymph # (Auto) 1.2 (0.6-2.4) K/uL [place] # (Auto) 0.4 (0.0-0.8) K/uL Eos # (Auto) 0.0 (0.0-0.7) K/uL Baso # (Auto) 0.0 (0.0-0.1) K/uL Nucleated RBC % 0.0 /100WBC Nucleated RBCs # 0 K/uL Sodium 135 L (136-148) mmol/L Potassium 5.1 (3.5-5.1) mmol/L Chloride 102 (98-107) mmol/L Carbon Dioxide 30.4 (21.0-32.0) mmol/L BUN 17 (7.0-18.0) mg/dL Creatinine 1.1 (0.8-1.3) mg/dL Est Cr Clr Drug Dosing 85.57 mL/min Estimated GFR (MDRD) > 60.0 ml/min Glucose 187 H (74-106) mg/dL Calcium 8.4 L (8.5-10.1) mg/dL Total Bilirubin 0.5 (0.2-1.0) mg/dL AST 23 (15-37) IU/L ALT 55 (14-63) IU/L Alkaline Phosphatase 54 (46-116) U/L Total Protein 6.3 L (6.4-8.2) g/dL Albumin 2.9 L (3.4-5.0) g/dL Globulin 3.4 (2.6-4.0) g/dL Albumin/Globulin Ratio 0.9 (0.9-1.6) Med Orders - Current: Current Medications Acetaminophen (Acetaminophen 325 Mg Tab) 650 mg PO Q4H PRN PRN Reason: Pain (Mild 1-3)/fever Albuterol/Ipratropium (Albuterol/Ipratropium 4 Gm Inhalation [place]) 0 gm INH Q6H [facility] Last Admin: 12/12/20 16:32 Dose: 2 inhalation Documented by: Dexamethasone (Dexamethasone 4 Mg Tab) 6 mg PO Q24H [facility] Last Admin: 12/11/20 22:49 Dose: 6 mg Documented by: Enoxaparin Sodium (Enoxaparin 40 Mg/0.4 Ml Syringe) 40 mg SUBCUT Q24H [facility] Last Admin: 12/11/20 22:48 Dose: 40 mg Documented by: Sodium Chloride (Sodium Chloride 0.9% 10 Ml Syringe) 10 ml FLUSH ASDIRECTED PRN PRN Reason: Keep Vein Open Last Admin: 12/05/20 19:08 Dose: 10 ml Documented by: Sodium Chloride (Sodium Chloride 0.9% 2.5 Ml Syringe) 2.5 ml FLUSH ASDIRECTED PRN PRN Reason: Keep Vein Open Discontinued Medications Albuterol/Ipratropium (Albuterol/Ipratropium 4 Gm Inhalation [place]) 0 gm INH Q6H [facility] Last Admin: 12/07/20 09:55 Dose: Not Given Documented by: Sodium Chloride (Normal Saline) 1,000 mls @ 500 mls/hr IV .Bolus ONE Stop: 12/05/20 20:38 Last Admin: 12/05/20 19:08 Dose: 500 mls/hr Documented by: Remdesivir 200 mg/ Sodium (Chloride) 250 mls @ 250 mls/hr IV ONETIME ONE Stop: 12/05/20 23:36 Last Admin: 12/06/20 00:20 Dose: 250 mls/hr Documented by: Remdesivir 100 mg/ Sodium (Chloride) 100 mls @ 100 mls/hr IV Q24H [facility] Stop: 12/09/20 21:59 Last Admin: 12/09/20 21:14 Dose: 100 mls/hr Documented by: Tocilizumab 800 mg/ Sodium (Chloride) 140 mls @ 140 mls/hr IV ONETIME ONE Stop: 12/08/20 16:08 - Exam General: Alert, Oriented HEENT: Pupils Equal Neck: Supple Lungs: Other (Diminished breath sounds bilaterally. No crackles or wheezing.) Cardiovascular: Regular Rate, Regular Rhythm GI/Abdominal Exam: Normal Bowel Sounds, Soft, Non-Tender Extremities: Normal Inspection, Non-Tender, No Pedal Edema. No: Gonzalo's Sign, Leg Pain Skin: Warm, Dry, Intact Neurological: No New Focal Deficit - Patient Data Lab Results Last 24 hrs: Laboratory Results - last 24 hr 12/12/20 12/12/20 Range/Units 05:20 05:20 WBC 9.07 (4.0-11.0) K/uL RBC 5.34 (4.50-5.90) M/uL Hgb 15.6 (13.0-17.0) g/dL Hct 45.5 (38.0-50.0) % MCV 85.2 (80.0-98.0) fL MCH 29.2 (27.0-32.0) pg MCHC 34.3 (31.0-37.0) g/dL RDW Std Deviation 40.5 (28.0-62.0) fl RDW Coeff of [place] 13 (11.0-15.0) % Plt Count 466 H (150-400) K/uL MPV 9.70 (7.40-12.00) fL Neut % (Auto) 82.0 H (48.0-80.0) % Lymph % (Auto) 12.9 L (16.0-40.0) % [place] % (Auto) 4.6 (0.0-15.0) % Eos % (Auto) 0.3 (0.0-7.0) % Baso % (Auto) 0.2 (0.0-1.5) % Neut # (Auto) 7.4 H (1.4-5.7) K/uL Lymph # (Auto) 1.2 (0.6-2.4) K/uL [place] # (Auto) 0.4 (0.0-0.8) K/uL Eos # (Auto) 0.0 (0.0-0.7) K/uL Baso # (Auto) 0.0 (0.0-0.1) K/uL Nucleated RBC % 0.0 /100WBC Nucleated RBCs # 0 K/uL Sodium 135 L (136-148) mmol/L Potassium 5.1 (3.5-5.1) mmol/L Chloride 102 (98-107) mmol/L Carbon Dioxide 30.4 (21.0-32.0) mmol/L BUN 17 (7.0-18.0) mg/dL Creatinine 1.1 (0.8-1.3) mg/dL Est Cr Clr Drug Dosing 85.57 mL/min Estimated GFR (MDRD) > 60.0 ml/min Glucose 187 H (74-106) mg/dL Calcium 8.4 L (8.5-10.1) mg/dL Total Bilirubin 0.5 (0.2-1.0) mg/dL AST 23 (15-37) IU/L ALT 55 (14-63) IU/L Alkaline Phosphatase 54 (46-116) U/L Total Protein 6.3 L (6.4-8.2) g/dL Albumin 2.9 L (3.4-5.0) g/dL Globulin 3.4 (2.6-4.0) g/dL Albumin/Globulin Ratio 0.9 (0.9-1.6) Result Diagrams: 12/12/20 05:20 12/12/20 05:20 Sepsis Event Note - Evaluation Sepsis Screening Result: No Definite Risk - Focused Exam Vital Signs: Vital Signs Temp Pulse Resp BP Pulse Ox 12/12/20 16:00 97.4 F 94 18 142/91 H 95 12/12/20 12:00 97.3 F 99 20 125/79 92 L 12/12/20 08:00 97.5 F 72 18 131/89 94 L - Problem List Review Problem List Initiated/Reviewed/Updated: Yes - My Orders Last 24 Hours: My Active Orders 12/13/20 05:11 CBC WITH AUTO DIFF [HEME] AM CMP [COMPREHENSIVE METABOLIC PN,CMP] [CHEM] AM 12/14/20 05:11 CBC WITH AUTO DIFF [HEME] AM CMP [COMPREHENSIVE METABOLIC PN,CMP] [CHEM] AM 12/15/20 05:11 CBC WITH AUTO DIFF [HEME] AM CMP [COMPREHENSIVE METABOLIC PN,CMP] [CHEM] AM - Plan Plan:: Patient is admitted for COVID pneumonia, day 8 of admission. He completed remdesivir. Day 8 of dexamethasone. Continue supportive measures including Combivent, incentive spirometry, and oxygen support. Patient's respiratory status has improved and is now on 2.5 L nasal cannula. Continue weaning oxygen. Will trial 1 hour of CPAP today.
[2020-12-12] MEDS: Dexamethasone 4 MG Tab PO SCH (23:46)
[2020-12-12] MEDS: Enoxaparin 40 MG/0.4 ML Syringe SUBCUT SCH (23:47)
[2020-12-13] MEDS: Albuterol/Ipratropium 4 GM Inhalation Spray INH SCH ×2 (04:01→09:20)
[2020-12-13 06:08] LABS: BLOOD UREA NITROGEN,BUN 17 mg/dL (7.0-18.0); CARBON DIOXIDE,CO2 29.6 mmol/L (21.0-32.0); CHLORIDE,CL 101 mmol/L (98-107); GLUCOSE RANDOM 182 mg/dL (74-106); POTASSIUM,K 4.8 mmol/L (3.5-5.1); SODIUM,NA 135 mmol/L (136-148)
--- NOTE | 2020-12-13 11:42 | PCM.DCSUM1 ---
Discharge Summary - Hospital Course Free Text/Narrative:: 50-year-old male with no significant past medical history presented to the ER on 12/05/2020 for worsening Covid symptoms. Patient did not get the Covid vaccine. Patient tested positive on 12/01 in the clinic. Patient had a cough and fever which worsened to chest tightness with ambulation, shortness of breath and nonproductive cough. He also endorsed diarrhea. In the ER, EKG was normal sinus rhythm. Temperature 98.4. Pulse 112. Respiratory rate 20. Blood pressure 125/72. His oxygen saturation was found to be in the mid 80s. Patient was admitted for worsening COVID-19 pneumonia. Sodium was 131. CK was 762. Lipase was 609. Lactic acid 1.5. CXR showed patchy subpleural groundglass infiltrates and consolidation in both lungs consistent with Covid. CT angio showed no evidence of pulmonary embolism. Extensive bilateral groundglass opacities consistent with Covid. Lung sounds were diminished throughout. Patient was started on 4 L nasal cannula. His oxygen requirements increased and he was put on heated high flow at 40 FiO2 70. He received remdesivir therapy. He received 9 days of dexamethasone 6 mg. He is being discharged with 1 day of dexamethasone. He tolerated a regular diet. Appetite slowly improved. Patient's oxygenation status slowly improved and was slowly weaned down. He did receive CPAP x3. Patient was weaned down to room air and is stable. On ambulatory oxygen assessment patient was saturating in the low 90s. On discharge patient will get 1 day of dexamethasone and albuterol inhaler to be used as needed. - Discharge Data Discharge Date: 12/13/20 Discharge Disposition: Home, Self-Care 01 Condition: Stable - Referral to Home Health Primary Care Physician: PCP None - Patient Instructions Diet: Usual Diet as Tolerated Activity: As Tolerated Notify Provider of: Fever Other/Special Instructions: You were admitted for Covid pneumonia and required oxygen. You have been weaned down to room air and are not requiring oxygen with rest or when walking. You may become short of breath with heavy exertion so please advance your activity as tolerated. You are being prescribed 1 day of dexamethasone, the steroid you are receiving. He will take 6 mg of the dex amethasone on 12/14/2020. You are also being given an albuterol inhaler which is to be taken when you feel short of breath on an as-needed basis. If you begin to experience fever, chest pain, palpitations, worsening shortness of breath, dizziness please seek medical attention. - Discharge Plan *PRESCRIPTION DRUG MONITORING PROGRAM REVIEWED*: Not Applicable *COPY OF PRESCRIPTION DRUG MONITORING REPORT IN PATIENT NATE: Not Applicable Prescriptions/Med Rec: Albuterol Sulfate [Albuterol Sulfate HFA] 8.5 gm INH Q4HR #1 ea dexAMETHasone [Dexamethasone] 6 mg PO Q24H 1 Days #1 tablet Home Medications: Home Meds Albuterol Sulfate [Albuterol Sulfate HFA] 8.5 gm INH Q4HR #1 ea 12/13/20 [Rx] dexAMETHasone [Dexamethasone] 6 mg PO Q24H 1 Days #1 tablet 12/13/20 [Rx] Oxygen Therapy Mode: Room Air Patient Handouts: COVID-19 Frequently Asked Questions, COVID-19, COVID-19 Vaccine Information, Albuterol inhalation aerosol, What You Should Know About COVID-19 to Protect Yourself and Others - CDC, COVID-19: How to Protect Yourself and Others - [facility] [place], Dexamethasone tablets, Prevent the Spread of COVID-19 if You Are Sick - [facility] [place] Referrals: Shauna Miles PA [Physician Outside Plant Technician] - 12/19/20 3:45 pm - Discharge Summary/Plan Comment DC Time >30 min.: Yes Total # of Minutes for Discharge Time: 31 - General Info Admission Dx/Problem (Free Text: Admission Diagnosis/Problem Admission Diagnosis/Problem Pneumonia - Review of Systems General: Reports: Weakness HEENT: Reports: No Symptoms Pulmonary: Reports: Cough. Denies: Pleuritic Chest Pain Cardiovascular: Reports: Dyspnea on Exertion. Denies: Chest Pain, Palpitations Gastrointestinal: Denies: Abdominal Pain, Constipation, Decreased Appetite, Diarrhea Genitourinary: Denies: Dysuria Musculoskeletal: Denies: Neck Pain, Shoulder Pain, Back Pain, Leg Pain, Foot Pain, Joint Pain, Joint Swelling Skin: Reports: No Symptoms Neurological: Reports: No Symptoms - Patient Data Vitals - Most Recent: Last Vital Signs Temp 96.9 F 12/13/20 09:10 Pulse 92 12/13/20 09:10 Resp 16 12/13/20 09:10 BP 122/81 12/13/20 09:10 Pulse Ox 91 L 12/13/20 09:10 Weight - Most Recent: 246 lb 1.6 oz I&O - Last 24 hours: Intake & Output 12/12/20 12/13/20 12/13/20 22:59 06:59 14:59 Intake Total 2150 800 Balance 2150 800 Lab Results - Last 24 hrs: Laboratory Results - last 24 hr 12/13/20 12/13/20 Range/Units 05:40 05:40 WBC 8.81 (4.0-11.0) K/uL RBC 5.43 (4.50-5.90) M/uL Hgb 16.0 (13.0-17.0) g/dL Hct 46.2 (38.0-50.0) % MCV 85.1 (80.0-98.0) fL MCH 29.5 (27.0-32.0) pg MCHC 34.6 (31.0-37.0) g/dL RDW Std Deviation 40.6 (28.0-62.0) fl RDW Coeff of [place] 13 (11.0-15.0) % Plt Count 475 H (150-400) K/uL MPV 9.30 (7.40-12.00) fL Neut % (Auto) 79.3 (48.0-80.0) % Lymph % (Auto) 14.9 L (16.0-40.0) % [place] % (Auto) 5.3 (0.0-15.0) % Eos % (Auto) 0.3 (0.0-7.0) % Baso % (Auto) 0.2 (0.0-1.5) % Neut # (Auto) 7.0 H (1.4-5.7) K/uL Lymph # (Auto) 1.3 (0.6-2.4) K/uL [place] # (Auto) 0.5 (0.0-0.8) K/uL Eos # (Auto) 0.0 (0.0-0.7) K/uL Baso # (Auto) 0.0 (0.0-0.1) K/uL Nucleated RBC % 0.0 /100WBC Nucleated RBCs # 0 K/uL Sodium 135 L (136-148) mmol/L Potassium 4.8 (3.5-5.1) mmol/L Chloride 101 (98-107) mmol/L Carbon Dioxide 29.6 (21.0-32.0) mmol/L BUN 17 (7.0-18.0) mg/dL Creatinine 1.2 (0.8-1.3) mg/dL Est Cr Clr Drug Dosing 78.44 mL/min Estimated GFR (MDRD) > 60.0 ml/min Glucose 182 H (74-106) mg/dL Calcium 8.3 L (8.5-10.1) mg/dL Total Bilirubin 0.5 (0.2-1.0) mg/dL AST 32 (15-37) IU/L ALT 66 H (14-63) IU/L Alkaline Phosphatase 52 (46-116) U/L Total Protein 6.3 L (6.4-8.2) g/dL Albumin 3.0 L (3.4-5.0) g/dL Globulin 3.3 (2.6-4.0) g/dL Albumin/Globulin Ratio 0.9 (0.9-1.6) Med Orders - Current: Current Medications Acetaminophen (Acetaminophen 325 Mg Tab) 650 mg PO Q4H PRN PRN Reason: Pain (Mild 1-3)/fever Albuterol/Ipratropium (Albuterol/Ipratropium 4 Gm Inhalation [place]) 0 gm INH Q6H [facility] Last Admin: 12/13/20 09:20 Dose: 2 inhalation Documented by: Dexamethasone (Dexamethasone 4 Mg Tab) 6 mg PO Q24H [facility] Last Admin: 12/12/20 23:46 Dose: 6 mg Documented by: Enoxaparin Sodium (Enoxaparin 40 Mg/0.4 Ml Syringe) 40 mg SUBCUT Q24H [facility] Last Admin: 12/12/20 23:47 Dose: 40 mg Documented by: Sodium Chloride (Sodium Chloride 0.9% 10 Ml Syringe) 10 ml FLUSH ASDIRECTED PRN PRN Reason: Keep Vein Open Last Admin: 12/05/20 19:08 Dose: 10 ml Documented by: Sodium Chloride (Sodium Chloride 0.9% 2.5 Ml Syringe) 2.5 ml FLUSH ASDIRECTED PRN PRN Reason: Keep Vein Open Discontinued Medications Albuterol/Ipratropium (Albuterol/Ipratropium 4 Gm Inhalation [place]) 0 gm INH Q6H [facility] Last Admin: 12/07/20 09:55 Dose: Not Given Documented by: Sodium Chloride (Normal Saline) 1,000 mls @ 500 mls/hr IV .Bolus ONE Stop: 12/05/20 20:38 Last Admin: 12/05/20 19:08 Dose: 500 mls/hr Documented by: Remdesivir 200 mg/ Sodium (Chloride) 250 mls @ 250 mls/hr IV ONETIME ONE Stop: 12/05/20 23:36 Last Admin: 12/06/20 00:20 Dose: 250 mls/hr Documented by: Remdesivir 100 mg/ Sodium (Chloride) 100 mls @ 100 mls/hr IV Q24H [facility] Stop: 12/09/20 21:59 Last Admin: 12/09/20 21:14 Dose: 100 mls/hr Documented by: Tocilizumab 800 mg/ Sodium (Chloride) 140 mls @ 140 mls/hr IV ONETIME ONE Stop: 12/08/20 16:08 - Exam General: Reports: Alert, Oriented, Cooperative HEENT: Reports: Pupils Equal Neck: Reports: Supple, No JVD Lungs: Reports: Clear to Auscultation, Normal Respiratory Effort. Denies: Crackles, Wheezing Cardiovascular: Reports: Regular Rate, Regular Rhythm GI/Abdominal Exam: Normal Bowel Sounds, Soft, Non-Tender Back Exam: Reports: Normal Inspection Extremities: Normal Inspection, No Pedal Edema. No: Gonzalo's Sign, Leg Pain Skin: Reports: Warm, Dry, Intact Neurological: Reports: No New Focal Deficit
== END 2020-12-13 12:25 | disposition home or self-care (01) | DRG 137 ==
LOC: MW.ED 17:59 → MW.MS 18:51
PROVIDERS: ADMIT Internal Medicine; ATTEND Internal Medicine
PROC: XW033E5 Introduction of Remdesivir Anti-infective into Peripheral Vein, Percutaneous Approach, New Technology Group 5 (ICD-10-PCS; principal; 2020-12-05)
PROC: 5A09457 Assistance with Respiratory Ventilation, 24-96 Consecutive Hours, Continuous Positive Airway Pressure (ICD-10-PCS; 2020-12-05)
DX: U07.1 COVID-19 (principal); J12.82 Pneumonia due to coronavirus disease 2019; J96.01 Acute respiratory failure with hypoxia; Z79.899 Other long term (current) drug therapy; Z86.16 Personal history of COVID-19
CPT/HCPCS: 36415; 71045; 71045-26; 80048; 80053; 82550; 83690; 83735; 84484; 85025; 86140; 93005; 93010; 94640; 94660; 94664; 99283; 99285-25; A9270-GY; J1650; J7030; J7050; J8540

== ENCOUNTER 2022-05-06 08:28 | Day surgery (SDC) | payer BC, OTHER ==
[~2022-05-06 08:28] MED LIST: Albuterol 0.083% 2.5 MG/3 ML Neb Soln NEB PRN; HYDROmorphone 1 MG/ML Syringe IVPUSH PRN; Lactated Ringers 1,000 ML IV SCH; Metoclopramide 10 MG/2 ML SDV IVPUSH PRN; Morphine 2 MG/ML SYRINGE IVPUSH PRN; Naloxone 0.4 MG/ML SDV IVPUSH PRN; Ondansetron 4 MG/2 ML SDV IVPUSH PRN; ceFAZolin 2 GM in Premix Bag 1 BAG IV ONE; fentaNYL 50 MCG/ML SDV IVPUSH PRN
[2022-05-06] MEDS ORDERED: Bupivacaine 0.25% 30 ML SDV ONE (09:43)
[2022-05-06] MEDS ORDERED: Propofol 200 MG/20 ML SDV ONE (10:00)
[2022-05-06] MEDS ORDERED: Rocuronium Bromide 50 MG/5 ML Syringe ONE ×2 (10:00→12:10)
[2022-05-06] MEDS ORDERED: Dexmedetomidine 200 MCG/2 ML SDV ONE (10:00)
[2022-05-06] MEDS ORDERED: fentaNYL 100 MCG/2 ML SDV ONE (10:00)
[2022-05-06] MEDS ORDERED: Water For Injection, Sterile 20 ML ONE (10:01)
[2022-05-06] MEDS ORDERED: Bupivacaine 0.5% 30 ML SDV ONE (10:10)
[2022-05-06] MEDS ORDERED: ceFAZolin 2 GM Vial ONE (10:40)
[2022-05-06] MEDS ORDERED: ePHEDrine 50 MG/ML SDV ONE (10:53)
[2022-05-06] MEDS ORDERED: Dexamethasone 4 MG/ML 5 ML MDV ONE (10:53)
[2022-05-06] MEDS ORDERED: Phenylephrine 1% 10 MG/ML SDV ONE (11:07)
[2022-05-06] MEDS ORDERED: Ketorolac 30 MG/ML SDV ONE (12:41)
[2022-05-06] MEDS ORDERED: Sugammadex Sodium 200 MG/2 ML VIAL ONE (12:41)
[2022-05-06] MEDS ORDERED: Acetaminophen/HYDROcodone 325-5 MG Tab PO PRN (12:59)
[2022-05-06] MEDS ORDERED: Morphine 4 MG/ML Syringe IVPUSH PRN (12:59)
[2022-05-06] MEDS ORDERED: Ondansetron 4 MG/2 ML SDV IVPUSH PRN (12:59)
[2022-05-06] MEDS ORDERED: Lactated Ringers 1,000 ML IV SCH (13:00)
== END 2022-05-06 14:50 | disposition home or self-care (01) ==
LOC: MW.SDS 08:28
PROVIDERS: ATTEND Surgery
DX: K40.90 Unilateral inguinal hernia, without obstruction or gangrene, not specified as recurrent (principal); K43.6 Other and unspecified ventral hernia with obstruction, without gangrene; U07.1 COVID-19; E66.9 Obesity, unspecified; G47.30 Sleep apnea, unspecified; I10 Essential (primary) hypertension; Z79.899 Other long term (current) drug therapy; Z79.82 Long term (current) use of aspirin; Z98.890 Other specified postprocedural states; Z68.36 Body mass index [BMI] 36.0-36.9, adult; Z86.16 Personal history of COVID-19
CPT/HCPCS: 49505; 49592; C1781; J0131; J0690; J1100; J1885; J2370; J2704; J3010; J3490; J7120; 00750; 64488

== ENCOUNTER 2023-01-21 22:02 | Emergency (ER) | payer OTHER ==
[2023-01-21] MEDS ORDERED: Sodium Chloride 0.9% 1,000 ML IV ONE (22:39)
[2023-01-21] MEDS ORDERED: Diltiazem 25 MG/5 ML SDV IVPUSH ONE (23:48)
[2023-01-22] MEDS ORDERED: Diltiazem 25 MG/5 ML SDV IVPUSH ONE (00:44)
== END 2023-01-22 02:03 | disposition home or self-care (01) ==
LOC: MW.ED 22:02
DX: R00.0 Tachycardia, unspecified (principal); I10 Essential (primary) hypertension; E66.9 Obesity, unspecified; Z68.36 Body mass index [BMI] 36.0-36.9, adult; Z86.16 Personal history of COVID-19; Z79.899 Other long term (current) drug therapy; Z79.82 Long term (current) use of aspirin
CPT/HCPCS: 93005; 96374; 96376; 99284; J3490; J7030